=== PATIENT | male | born 1955 | race Caucasian/White ===

== ENCOUNTER 2018-08-13 16:05 | Inpatient (IN) | payer MEDICARE, OTHER ==
[~2018-08-13] VITALS: Ht 175.3 cm; Wt 75.3 kg
[~2018-08-13 16:05] MED LIST: AMIODARONE HCL100 MG ORAL; METOPROLOL SUCC25 MG ORAL
[2018-08-13 16:20] VITALS: BP 122/68
--- NOTE | 2018-08-13 16:20 | NUR ---
ED Nurse Note: Pt brought in to ER by amulance from store that he was shopping due to Rt flank sharp pain 12/15. pt aao x4 and calm and cooperative. skin will be assessed after lab works done. pt demonstrated general weakness and fatigued.
[2018-08-13] MEDS ORDERED: Morphine Sulfate 4mg/ml Inj (IV USE ONLY) IVP ONE ×2 (16:30→19:00)
[2018-08-13 16:38] LABS: APPEARANCE,URINE SLIGHTLY CLOUDY; BILIRUBIN, URINE NEGATIVE (NEGATIVE); COLOR,URINE AMBER; GLUCOSE, URINE (UA) NEGATIVE (NEGATIVE); KETONES,URINE NEGATIVE (NEGATIVE); LEUKOCYTE ESTERASE ,URINE 1+ (NEGATIVE); NITRITE,URINE NEGATIVE (NEGATIVE); PH,URINE 5 (4.5-8.0); PROTEIN,URINE 1+ (NEGATIVE); UROBILINOGEN,URINE 1 MG/DL (0.0-1.0)
[2018-08-13 17:06] LABS: HEMATOCRIT 37.1 % (42.0-52.0); HEMOGLOBIN 11.9 G/DL (14.2-18.0); MEAN CORPUSCULAR VOLUME 80 FL (80-99); PLATELET COUNT 169 K/UL (150-450); RED BLOOD COUNT 4.61 M/UL (4.70-6.10); RED CELL DISTRIBUTION WIDTH 15.7 % (11.6-14.8); WHITE BLOOD COUNT 21.2 K/UL (4.8-10.8)
[2018-08-13] MEDS ORDERED: cefTRIAXone 1 GM in NS 55 ML IVPB ONE (17:15)
[2018-08-13 17:21] LABS: ANION GAP 11 mmol/L (5-15); BLOOD UREA NITROGEN 19 mg/dL (7-18); CALCIUM 8.8 MG/DL (8.5-10.1); CARBON DIOXIDE 25 MMOL/L (21-32); CHLORIDE 102 MMOL/L (98-107); CREATININE 1.7 MG/DL (0.55-1.30); POTASSIUM 3.9 MMOL/L (3.5-5.1); SODIUM 138 MMOL/L (136-145)
--- NOTE | 2018-08-13 17:24 | Diagnostic Imaging Report ---
Indication: Right flank pain x3 hours Technique: Spiral acquisitions obtained through the abdomen and pelvis. No oral or IV contrast utilized, per urinary stone protocol. Multiplanar reconstructions were generated. Total dose length product 846.63 mGycm. CTDIvol(s) 15.47 mGy. Dose reduction achieved using automated exposure control Comparison: none Findings: There a prominent extrarenal pelvises bilaterally. No renal or ureteral calculi, hydronephrosis, or hydroureter. Lack of IV contrast limits assessment of the renal parenchyma; no gross renal parenchymal mass or cyst demonstrated. The appendix is normal. Moderate retained stool is seen in the ascending colon. There is a small left inguinal hernia that contains only fat. No small bowel distention. No free or loculated intraperitoneal gas or fluid is evident. Distal esophagus, stomach, duodenum are unremarkable. There is a small fat-containing umbilical hernia noted. The lack of IV contrast limits assessment of the other solid organs. The liver, gallbladder, bile ducts, pancreas, spleen, adrenals are all unremarkable. No retroperitoneal or mesenteric mass or adenopathy. No pelvic mass or adenopathy. The prostate is mildly prominent. The included lung bases demonstrate atelectasis and consolidation on the right, and dependent atelectatic changes on the left. There may be a component of scarring bilaterally as well. Pacemaker wires are seen in the heart. The bones demonstrate mild degenerative spondylosis changes Impression: Acute abdominal or pelvic abnormality. No evidence of obstructive uropathy or urinary stone disease Basilar pulmonary parenchymal disease, likely combination of consolidation, atelectasis, and scarring, right greater than left Incidental findings as noted, including degenerative spondylosis, pacemaker, small fat-containing umbilical hernia, small fat-containing left inguinal hernia The CT scanner at [facility] is accredited by the [employer] and the scans are performed using protocols designed to limit radiation exposure to as low as reasonably achievable to attain images of sufficient resolution adequate for diagnostic evaluation.
[2018-08-13 17:26] LABS: ALANINE AMINOTRANSFERASE 19 U/L (12-78); ALBUMIN 3.1 G/DL (3.4-5.0); ALBUMIN/GLOBULIN RATIO 0.9 (1.0-2.7); ALKALINE PHOSPHATASE 84 U/L (46-116); ASPARTATE AMINO TRANSFERASE 36 U/L (15-37); BILIRUBIN,TOTAL 0.6 MG/DL (0.2-1.0)
[2018-08-13] MEDS ORDERED: Azithromycin 500 MG in D5W 275 ML IVPB ONE (17:45)
[2018-08-13 18:00] VITALS: BP 131/62
--- NOTE | 2018-08-13 18:00 | NUR ---
ED Nurse Note: Pt saturating with room air at 88%. put him on 2 L/min via nasal cannula. saturating at 98%.
--- NOTE | 2018-08-13 18:00 | Emergency Room Report ---
History of Present Illness General Chief Complaint: Pain Source: Patient, EMS Present Illness HPI Patient is a 63-year-old male brought in by EMS after increased right-sided flank pain for approximately 3 hours. Patient reports of increased right-sided flank pain associate with increased dark urine. He had prior history of cardiac disease and is currently taking amiodarone and had prior stents Allergies: Coded Allergies: No Known Allergies (Unverified , 08/13/18) Patient History Past Medical History: see triage record Reviewed Nursing Documentation: PMH: Agreed; PSxH: Agreed Nursing Documentation-PMH Hx Cardiac Problems: Yes - pacemaker & 2 stents Hx Hypertension: Yes Review of Systems All Other Systems: negative except mentioned in HPI Physical Exam Vital Signs Date Time Temp Pulse Resp B/P (MAP) Pulse Ox O2 Delivery O2 Flow Rate FiO2 08/13/18 16:01 98.4 96 16 122/75 98 Room Air Sp02 EP Interpretation: reviewed, normal General Appearance: normal inspection, well appearing, no apparent distress, alert, GCS 15 Head: atraumatic ENT: normal ENT inspection, hearing grossly normal, normal voice Neck: normal inspection, full range of motion, supple, no bony tend Respiratory: normal inspection, lungs clear, normal breath sounds, no respiratory distress, no retraction, no wheezing Cardiovascular #1: regular rate, rhythm, no edema Gastrointestinal: normal inspection, normal bowel sounds, non tender, soft, no guarding, no hernia Genitourinary: no CVA tenderness Musculoskeletal: normal inspection, back normal, normal range of motion Neurologic: normal inspection, alert, responsive, speech normal Psychiatric: normal inspection, judgement/insight normal, mood/affect normal Skin: normal inspection, normal color, no rash Medical Decision Making Diagnostic Impression: Primary Impression: Pneumonitis Additional Impressions: On amiodarone therapy Leukocytosis Urinary tract infection ER Course Patient presented for flank pain. Differential diagnosis included was not limited to pneumonia, renal stone, rib fracture, pulmonary embolism, ulcer, enteritis, pyelonephritis among othersAuditory studies were notable for a markedly elevated white blood count. Patient was noted to have some evidence of urinary infection. CT of the abdomen pelvis read by radiology showed right- sided scarring and possible infiltrate. Chest x-ray was ordered. Cultures were obtained. Patient was given IV antibiotics.Patient was given IV pain medication due to flank pain.Dr. Ten Reno was contacted for inpatient management Labs Test 08/13/18 16:25 08/13/18 16:40 08/13/18 18:00 Urine Color Jade Urine Appearance Slightly cloudy Urine pH 5 (4.5-8.0) Urine Specific [place] 1.020 (1.005-1.035) Urine Protein 1+ (NEGATIVE) Urine Glucose (UA) Negative (NEGATIVE) Urine Ketones Negative (NEGATIVE) Urine Blood 2+ (NEGATIVE) Urine Nitrite Negative (NEGATIVE) Urine Bilirubin Negative (NEGATIVE) Urine Ictotest Negative (NEGATIVE) Urine Urobilinogen 1 MG/DL (0.0-1.0) Urine Leukocyte Esterase 1+ (NEGATIVE) Urine RBC 2-4 /HPF (0 - 0) Urine WBC 5-10 /HPF (0 - 0) Urine Squamous Epithelial Cells None /LPF (NONE/OCC) Urine Amorphous Sediment Few /LPF (NONE) Urine Bacteria Moderate /HPF (NONE) White Blood Count 21.2 K/UL (4.8-10.8) Red Blood Count 4.61 M/UL (4.70-6.10) Hemoglobin 11.9 G/DL (14.2-18.0) Hematocrit 37.1 % (42.0-52.0) Mean Corpuscular Volume 80 FL (80-99) Mean Corpuscular Hemoglobin 25.9 PG (27.0-31.0) Mean Corpuscular Hemoglobin Concent 32.2 G/DL (32.0-36.0) Red Cell Distribution Width 15.7 % (11.6-14.8) Platelet Count 169 K/UL (150-450) Mean Platelet Volume 9.1 FL (6.5-10.1) Neutrophils (%) (Auto) % (45.0-75.0) Lymphocytes (%) (Auto) % (20.0-45.0) Monocytes (%) (Auto) % (1.0-10.0) Eosinophils (%) (Auto) % (0.0-3.0) Basophils (%) (Auto) % (0.0-2.0) Differential Total Cells Counted 100 Neutrophils % (Manual) 86 % (45-75) Lymphocytes % (Manual) 10 % (20-45) Monocytes % (Manual) 4 % (1-10) Eosinophils % (Manual) 0 % (0-3) Basophils % (Manual) 0 % (0-2) Band Neutrophils 0 % (0-8) Platelet Estimate Adequate Platelet Morphology Normal Anisocytosis 1+ Microcytosis 1+ Sodium Level 138 MMOL/L (136-145) Potassium Level 3.9 MMOL/L (3.5-5.1) Chloride Level 102 MMOL/L (98-107) Carbon Dioxide Level 25 MMOL/L (21-32) Anion Gap 11 mmol/L (5-15) Blood Urea Nitrogen 19 mg/dL (7-18) Creatinine 1.7 MG/DL (0.55-1.30) Estimat Glomerular Filtration Rate 40.7 mL/min (>60) Glucose Level 96 MG/DL (74-106) Calcium Level 8.8 MG/DL (8.5-10.1) Total Bilirubin 0.6 MG/DL (0.2-1.0) Aspartate Amino Transf (AST/SGOT) 36 U/L (15-37) Alanine Aminotransferase (ALT/SGPT) 19 U/L (12-78) Alkaline Phosphatase 84 U/L (46-116) Total Protein 6.7 G/DL (6.4-8.2) Albumin 3.1 G/DL (3.4-5.0) Globulin 3.6 g/dL Albumin/Globulin Ratio 0.9 (1.0-2.7) Lipase 77 U/L (73-393) Lactic Acid Level 1.30 mmol/L (0.4-2.0) Last Vital Signs Date Time Temp Pulse Resp B/P (MAP) Pulse Ox O2 Delivery O2 Flow Rate FiO2 08/13/18 17:02 98.5 08/13/18 16:20 67 16 122/68 97 Room Air Status: improved Disposition: ADMITTED INPATIENT Condition: Stable Markel Ott MD Aug 13, 2018 18:00
[2018-08-13] MEDS ORDERED: AMIODARONE HCL100 MG ORAL (18:49)
[2018-08-13] MEDS ORDERED: DIAZEPAM5 MG ORAL (18:53)
[2018-08-13] MEDS ORDERED: CLARITIN5 MG ORAL (18:55)
[2018-08-13] MEDS ORDERED: CLARITIN10 MG ORAL (18:56)
[2018-08-13] MEDS ORDERED: XARELTO20 MG ORAL (18:57)
--- NOTE | 2018-08-13 18:57 | NUR ---
ED Nurse Note: pt c/o Rt flank pain worsen again to 11/14. ERMD made aware.
--- NOTE | 2018-08-13 19:04 | NUR ---
HAND-OFF: Report given to JAMIL Alba. no orders to carry at this moment. waiting for the room to be available in [facility].
[2018-08-13] MEDS ORDERED: Albuterol/Ipratropium 3ml neb HHN PRN (19:45)
[2018-08-13] MEDS ORDERED: LORazepam Inj 2mg/ml 1ml IV PRN (19:45)
[2018-08-13] MEDS ORDERED: Miralax 17gm pkt ORAL PRN (19:45)
--- NOTE | 2018-08-13 20:22 | NUR ---
ED Nurse Note: Patient states that he is not a homeless, his adress is [id number] [facility] [id number].
--- NOTE | 2018-08-13 20:35 | NUR ---
ED Nurse Note: tried to give report to Fani, JAMIL Randhawa asked to call in 10 min.
--- NOTE | 2018-08-13 21:42 | NUR ---
ED Nurse Note: Patient was admited to Tele. AAO x4, VSS at this time. Patient was transfered by ACLS protocol. All belongings were given to the patient.
[2018-08-13 21:55] VITALS: BP 130/72
--- NOTE | 2018-08-13 22:05 | NUR ---
NURSE NOTES: Received pt from ER. Pt is awake and resting in no acute distress. Patient tolerating on room air, nasal cannula available as needed. hall monitor placed on patient and vitals taken. IV site intact and patent. Orientated pt to room and floor. Bed in lowest position and call light within reach. Will contact MD for admission orders.
[2018-08-13] MEDS ORDERED: Cefepime HCl 2 GM in D5W 110 ML IV SCH (23:00)
[2018-08-13] MEDS: Heparin 5000 units/ml inj SUBQ SCH (23:25)
[2018-08-13] MEDS: Morphine Sulfate 4mg/ml Inj (IV USE ONLY) IVP PRN (23:28)
[2018-08-14] VITALS: BP 94/58
[2018-08-14] MEDS: Vancomycin 1.25gm Premix 275 ML IVPB SCH (00:42)
[2018-08-14 04:00] VITALS: BP 98/56
[2018-08-14] MEDS: Morphine Sulfate 4mg/ml Inj (IV USE ONLY) IVP PRN ×3 (05:48→20:45)
[2018-08-14 06:45] LABS: BASOPHILS % (AUTO) 0.4 % (0.0-2.0); EOSINOPHILS % (AUTO) 1.1 % (0.0-3.0); HEMATOCRIT 32.5 % (42.0-52.0); HEMOGLOBIN 10.7 G/DL (14.2-18.0); LYMPHOCYTES % (AUTO) 21.9 % (20.0-45.0); MEAN CORPUSCULAR VOLUME 81 FL (80-99); MONOCYTES % (AUTO) 8.3 % (1.0-10.0); NEUTROPHILS % (AUTO) 68.3 % (45.0-75.0); PLATELET COUNT 135 K/UL (150-450); RED BLOOD COUNT 4.02 M/UL (4.70-6.10); RED CELL DISTRIBUTION WIDTH 16.7 % (11.6-14.8); WHITE BLOOD COUNT 9.7 K/UL (4.8-10.8)
[2018-08-14 07:04] LABS: ALBUMIN 2.5 G/DL (3.4-5.0); ANION GAP 6 mmol/L (5-15); BLOOD UREA NITROGEN 17 mg/dL (7-18); CALCIUM 8.6 MG/DL (8.5-10.1); CARBON DIOXIDE 28 MMOL/L (21-32); CHLORIDE 107 MMOL/L (98-107); CREATININE 1.5 MG/DL (0.55-1.30); PHOSPHORUS 3.1 MG/DL (2.5-4.9); POTASSIUM 4.1 MMOL/L (3.5-5.1); SODIUM 141 MMOL/L (136-145)
--- NOTE | 2018-08-14 07:45 | Consultation ---
History of Present Illness General Date patient seen: Aug 14, 2018 Chief Complaint: Pain Reason for Consultation: Sepsis Present Illness HPI Mr. Deleon is a 63 yo male with PMHx of CAD s/p pacemaker and HTN who was brought to the ED after having severe right sided flank pain at a store. The patient reports that he had pain likel this 7 months ago and was Dx with PNA. He denies current cough, SOB, sick contacts and fevers. In the Ed he had a leukocytosis of 21 - now resolved and no fever. A CT of his abd/pelvis showed right lower lung atelectasis / consolidation and scaring CXR pending. His UA had a few WBCs and he complained of dark urine but no dysuria. He is now on RA and satting well. ID consulted for Sepsis PMHx/PSHx HTN CAD- SP Pacemaker SocHx No E/T/D FamHx Not contributory Allergies: Coded Allergies: No Known Allergies (Unverified , 08/13/18) Medication History Scheduled Amiodarone Hcl (Amiodarone Hcl), 100 MG ORAL DAILY, (Reported) Diazepam* (Diazepam*), 5 MG ORAL TWICE A DAY, (Reported) Loratadine (Claritin), Unknown Dose ORAL DAILY, (Reported) Metoprolol Succinate* (Metoprolol Succinate*), Unknown Dose ORAL DAILY, ( Reported) Miscellaneous Medications Rivaroxaban (Xarelto), 20 MG ORAL, (Reported) Patient History Healthcare decision maker Resuscitation status Full Code Advanced Directive on File Review of Systems ROS Narrative 12 point ROS negative except as note in the HPI. Physical Exam Last 24 Hour Vital Signs Date Time Temp Pulse Resp B/P (MAP) Pulse Ox O2 Delivery O2 Flow Rate FiO2 08/14/18 04:00 98.0 69 20 98/56 (70) 94 08/14/18 04:00 69 08/14/18 00:00 75 08/14/18 00:00 97.7 75 18 94/58 (70) 90 08/13/18 22:15 Room Air 08/13/18 22:06 75 08/13/18 21:55 97.9 75 18 130/72 (91) 95 08/13/18 21:42 98.4 86 18 137/74 98 Nasal Cannula 2.0 86 08/13/18 19:29 98.2 08/13/18 18:00 98.2 72 16 131/62 98 Room Air 2.0 08/13/18 17:02 98.5 08/13/18 17:00 70 16 Room Air 08/13/18 16:20 98.2 67 16 122/68 97 Room Air 08/13/18 16:01 98.4 96 16 122/75 98 Room Air Intake and Output 08/13/18 08/14/18 19:00 07:00 Intake Total 555 ml Output Total 3000 ml Balance 555 ml -3000 ml Intake Oral 0 ml IV Total 555 ml Output Urine Total 3000 ml # Voids 1 11 Laboratory Tests Test 08/13/18 16:25 08/13/18 16:40 08/13/18 18:00 08/14/18 06:00 Urine Color Jade Urine Appearance Slightly cloudy Urine pH 5 (4.5-8.0) Urine Specific [place] 1.020 (1.005-1.035) Urine Protein 1+ (NEGATIVE) H Urine Glucose (UA) Negative (NEGATIVE) Urine Ketones Negative (NEGATIVE) Urine Blood 2+ (NEGATIVE) H Urine Nitrite Negative (NEGATIVE) Urine Bilirubin Negative (NEGATIVE) Urine Ictotest Negative (NEGATIVE) Urine Urobilinogen 1 MG/DL (0.0-1.0) H Urine Leukocyte Esterase 1+ (NEGATIVE) H Urine RBC 2-4 /HPF (0 - 0) H Urine WBC 5-10 /HPF (0 - 0) H Urine Squamous Epithelial Cells None /LPF (NONE/OCC) Urine Amorphous Sediment Few /LPF (NONE) H Urine Bacteria Moderate /HPF (NONE) H White Blood Count 21.2 K/UL (4.8-10.8) H 9.7 K/UL (4.8-10.8) # Red Blood Count 4.61 M/UL (4.70-6.10) L 4.02 M/UL (4.70-6.10) L Hemoglobin 11.9 G/DL (14.2-18.0) L 10.7 G/DL (14.2-18.0) L Hematocrit 37.1 % (42.0-52.0) L 32.5 % (42.0-52.0) L Mean Corpuscular Volume 80 FL (80-99) 81 FL (80-99) Mean Corpuscular Hemoglobin 25.9 PG (27.0-31.0) L 26.5 PG (27.0-31.0) L Mean Corpuscular Hemoglobin Concent 32.2 G/DL (32.0-36.0) 32.7 G/DL (32.0-36.0) Red Cell Distribution Width 15.7 % (11.6-14.8) H 16.7 % (11.6-14.8) H Platelet Count 169 K/UL (150-450) 135 K/UL (150-450) L Mean Platelet Volume 9.1 FL (6.5-10.1) 11.0 FL (6.5-10.1) H Neutrophils (%) (Auto) % (45.0-75.0) 68.3 % (45.0-75.0) Lymphocytes (%) (Auto) % (20.0-45.0) 21.9 % (20.0-45.0) Monocytes (%) (Auto) % (1.0-10.0) 8.3 % (1.0-10.0) Eosinophils (%) (Auto) % (0.0-3.0) 1.1 % (0.0-3.0) Basophils (%) (Auto) % (0.0-2.0) 0.4 % (0.0-2.0) Differential Total Cells Counted 100 Neutrophils % (Manual) 86 % (45-75) H Lymphocytes % (Manual) 10 % (20-45) L Monocytes % (Manual) 4 % (1-10) Eosinophils % (Manual) 0 % (0-3) Basophils % (Manual) 0 % (0-2) Band Neutrophils 0 % (0-8) Platelet Estimate Adequate Platelet Morphology Normal Anisocytosis 1+ Microcytosis 1+ Sodium Level 138 MMOL/L (136-145) 141 MMOL/L (136-145) Potassium Level 3.9 MMOL/L (3.5-5.1) 4.1 MMOL/L (3.5-5.1) Chloride Level 102 MMOL/L (98-107) 107 MMOL/L (98-107) Carbon Dioxide Level 25 MMOL/L (21-32) 28 MMOL/L (21-32) Anion Gap 11 mmol/L (5-15) 6 mmol/L (5-15) Blood Urea Nitrogen 19 mg/dL (7-18) H 17 mg/dL (7-18) Creatinine 1.7 MG/DL (0.55-1.30) H 1.5 MG/DL (0.55-1.30) H Estimat Glomerular Filtration Rate 40.7 mL/min (>60) 47.0 mL/min (>60) Glucose Level 96 MG/DL (74-106) 85 MG/DL (74-106) Calcium Level 8.8 MG/DL (8.5-10.1) 8.6 MG/DL (8.5-10.1) Total Bilirubin 0.6 MG/DL (0.2-1.0) Aspartate Amino Transf (AST/SGOT) 36 U/L (15-37) Alanine Aminotransferase (ALT/SGPT) 19 U/L (12-78) Alkaline Phosphatase 84 U/L (46-116) Total Protein 6.7 G/DL (6.4-8.2) Albumin 3.1 G/DL (3.4-5.0) L 2.5 G/DL (3.4-5.0) L Globulin 3.6 g/dL Albumin/Globulin Ratio 0.9 (1.0-2.7) L Lipase 77 U/L (73-393) Lactic Acid Level 1.30 mmol/L (0.4-2.0) Phosphorus Level 3.1 MG/DL (2.5-4.9) Height (Feet): 5 Height (Inches): 9.00 Weight (Pounds): 165 Medications Current Medications Medications (Trade) Dose Ordered Sig/Shahla Route PRN Reason Start Time Stop Time Status Last Admin Dose Admin Acetaminophen (Tylenol) 650 mg Q4H PRN ORAL FEVER 08/13/18 19:45 09/12/18 19:44 Albuterol/ Ipratropium (Albuterol/ Ipratropium) 3 ml Q4H PRN HHN Shortness of Breath 08/13/18 19:45 08/18/18 19:44 Amiodarone HCl (Cordarone) 100 mg DAILY ORAL 08/14/18 09:00 09/13/18 08:59 Cefepime HCl 2 gm/ Dextrose 110 ml @ 220 mls/hr Q12H IV 08/13/18 23:00 08/20/18 22:59 4/8/19 23:26 Dextrose (Dextrose 50%) 50 ml STAT PRN IV Hypoglycemia 08/13/18 19:45 09/12/18 19:44 Heparin Sodium (Porcine) (Heparin 5000 units/ml) 5,000 units EVERY 12 HOURS SUBQ 08/13/18 21:00 09/12/18 20:59 08/13/18 23:25 Lorazepam (Ativan 2mg/ml 1ml) 2 mg Q2H PRN IV For Anxiety 08/13/18 19:45 08/20/18 19:44 Metoprolol Succinate (Toprol XL) 50 mg DAILY ORAL 08/14/18 09:00 09/13/18 08:59 Morphine Sulfate (Morphine Sulfate) 4 mg Q4H PRN IVP Severe Pain (Pain Scale 7-10) 08/13/18 19:45 08/20/18 19:44 08/14/18 05:48 Ondansetron HCl (Zofran) 4 mg Q6H PRN IVP Nausea & Vomiting 08/13/18 19:45 09/12/18 19:44 Polyethylene Glycol (Miralax) 17 gm DAILYPRN PRN ORAL Constipation 08/13/18 19:45 09/12/18 19:44 Sodium Chloride 1,000 ml @ 50 mls/hr Q20H IV 08/13/18 19:45 09/12/18 19:44 08/13/18 19:45 Vancomycin HCl/ Dextrose 275 ml @ 183.3 mls/ hr Q24H IVPB 08/14/18 00:30 08/19/18 00:29 08/14/18 00:42 Objective Narrative Gen: NAD, well appearing, alert HEENT: NCAT, MMM, EOMI, PERRL, No Oral lesion, no scleral icterus NECK: full range of motion, supple, no meningismus, No LAD, No JVD LUNGS: CTAB, No W/C, No Accessory muscle use CARDS: RRR, S1, S2, No M/R/G, ABD: Soft, NT, ND, No R/G, + BS, No HSM, No Masses : Deferred Ext: C/C/E, Pulses 2+ B/L (DP, Rad): NEURO: A/O x 4, Strength and Sensation Grossly intact PSYCH: Mood/affect normal SKIN: Warm/dry, No rashes Assessment/Plan Assessment/Plan 63 yo male with PMHx of CAD s/p pacemaker and HTN who was brought to the ED after having severe right sided flank pain at a store. Sepsis UTI? PNA? CT abd/pel 08/13/18 - Acute abdominal or pelvic abnormality. No evidence of obstructive uropathy or urinary stone disease. Basilar pulmonary parenchymal disease, likely combination of consolidation, atelectasis, and scarring, right greater than left. Incidental findings as noted, including degenerative spondylosis, pacemaker, small fat-containing umbilical hernia, small fat- containing left inguinal hernia Afebrile Leukocytosis initially 21 - Now resolved Spepsis vs pain reaction CAD- s/p pacemaker HTN PLAN - Start levofloxacin for UTI/CAP # 1/6 - 08/13/18 S/P Ceftriaxone x 1, Azithromycin x1 and Cefepime x 1 - f/u cultures - Monitor CBC and Temps Thank you for this consult. We will continue to follow the patient during this hospitalization. Shaan Rincon MD Aug 14, 2018 07:45
--- NOTE | 2018-08-14 07:45 | NUR ---
HAND-OFF: Report given to JAMIL Pickering. Endorsed plan of care.
--- NOTE | 2018-08-14 08:06 | NUR ---
CASE MANAGEMENT:REVIEW 63 YR OLD MALE BIBA FROM STORE CC: RT FLANK PAIN X 3HRS PMH: PACEMAKER SI: PNEUMONITIS. UTI. LEUKOCYTOSIS 98.5 96 16 122/75 98% ON RA WBC+21.2 BUN+19 CR+1.7 IS: IV ZOFRAN X1 500CC NS BOLUS IV MORPHINE IV ROCEPHIN IV AZITHROMYCIN CT ABD/PELVIS CXR URINE REFLEX : TO TELEMETRY :INTERQUAL CRITERIA MET
--- NOTE | 2018-08-14 08:43 | NUR ---
NURSE NOTES: Pt in bed in low position, bed alarm on, call light within reach, 2 rails up, pt Ox4 calm and cooperative, IV intact and running 1/2 NS at 50/hr, pt denies any pain, urinal at bedside, pt NPO for ST evaluation, pt on room air, pt refuses BiPap, no s/s of distress or sob noted.
[2018-08-14] MEDS: Amiodarone 200mg tab ORAL SCH (09:45)
[2018-08-14] MEDS: Metoprolol Succinate XL 50mg tab ORAL SCH (09:46)
[2018-08-14] MEDS: Heparin 5000 units/ml inj SUBQ SCH (09:47)
--- NOTE | 2018-08-14 09:56 | Diagnostic Imaging Report ---
Indication: Shortness of breath Technique: One view of the chest Comparison: none Findings: There is mild elevation of the right hemidiaphragm. There is some crowding of the bronchovascular markings in the right infrahilar region. Lungs and pleural spaces are otherwise clear. Heart size is normal. There is a left chest pacemaker. The aorta is elongated and tortuous Impression: No definite acute process. Findings as noted
[2018-08-14 10:07] LABS: APPEARANCE,URINE CLEAR; BILIRUBIN, URINE NEGATIVE (NEGATIVE); COLOR,URINE PALE YELLOW; GLUCOSE, URINE (UA) NEGATIVE (NEGATIVE); KETONES,URINE NEGATIVE (NEGATIVE); LEUKOCYTE ESTERASE ,URINE NEGATIVE (NEGATIVE); NITRITE,URINE NEGATIVE (NEGATIVE); PH,URINE 5 (4.5-8.0); PROTEIN,URINE NEGATIVE (NEGATIVE); UROBILINOGEN,URINE NORMAL MG/DL (0.0-1.0)
--- NOTE | 2018-08-14 11:01 | Diagnostic Imaging Report ---
APPROVED REPORT CPT Code: 19067 Present Symptoms Comments: BILATERAL LEGS PAIN. BILATERAL: Imaging reveals a patent deep venous system bilaterally. There is no evidence of thrombus within the femoral, popliteal or tibial segments. The greater saphenous veins are also within normal limits. Doppler indicates normal spontaneous flow within these segments.
[2018-08-14] MEDS ORDERED: Promethazine/Codeine 5ml UD ORAL PRN (11:30)
--- NOTE | 2018-08-14 11:34 | Consultation ---
History of Present Illness General Date patient seen: Aug 14, 2018 Chief Complaint: Pain Reason for Consultation: Sepsis Present Illness HPI 63 yo male with PMHx of CAD, s/p pacemaker, chronic anticoagulation and HTN brought to the ED with CC of severe right sided flank pain. He denies current cough, SOB, sick contacts and fevers. In the Ed he had a leukocytosis of 21. A CT of his abd/pelvis showed right lower lung atelectasis / consolidation and scaring . His UA had a few WBCs and he complained of dark urine but no dysuria. He is admitted to telemetry for further management. Allergies: Coded Allergies: No Known Allergies (Unverified , 08/13/18) Medication History Scheduled Amiodarone Hcl (Amiodarone Hcl), 100 MG ORAL DAILY, (Reported) Diazepam* (Diazepam*), 5 MG ORAL TWICE A DAY, (Reported) Loratadine (Claritin), Unknown Dose ORAL DAILY, (Reported) Metoprolol Succinate* (Metoprolol Succinate*), Unknown Dose ORAL DAILY, ( Reported) Miscellaneous Medications Rivaroxaban (Xarelto), 20 MG ORAL, (Reported) Patient History Healthcare decision maker Resuscitation status Full Code Advanced Directive on File Past Medical/Surgical History Past Medical/Surgical History: (1) Pacemaker (2) Chronic anticoagulation (3) Stented coronary artery (4) On amiodarone therapy (5) CAD (coronary artery disease) Review of Systems All Other Systems: negative except mentioned in HPI Physical Exam General Appearance: WD/WN Lines, tubes and drains: peripheral HEENT: normocephalic, atraumatic Neck: non-tender, normal alignment Respiratory/Chest: chest wall non-tender, lungs clear Breasts: no masses Cardiovascular/Chest: normal peripheral pulses Abdomen: normal bowel sounds Genitourinary/Rectal: normal genital exam Extremities: normal range of motion Skin Exam: normal pigmentation Last 24 Hour Vital Signs Date Time Temp Pulse Resp B/P (MAP) Pulse Ox O2 Delivery O2 Flow Rate FiO2 08/14/18 09:46 75 98/56 08/14/18 08:33 Room Air 08/14/18 07:35 75 16 Room Air 08/14/18 04:00 98.0 69 20 98/56 (70) 94 08/14/18 04:00 69 08/14/18 00:00 75 08/14/18 00:00 97.7 75 18 94/58 (70) 90 08/13/18 22:15 Room Air 08/13/18 22:06 75 08/13/18 21:55 97.9 75 18 130/72 (91) 95 08/13/18 21:42 98.4 86 18 137/74 98 Nasal Cannula 2.0 86 08/13/18 19:29 98.2 08/13/18 18:00 98.2 72 16 131/62 98 Room Air 2.0 08/13/18 17:02 98.5 08/13/18 17:00 70 16 Room Air 08/13/18 16:20 98.2 67 16 122/68 97 Room Air 08/13/18 16:01 98.4 96 16 122/75 98 Room Air Intake and Output 08/13/18 08/14/18 19:00 07:00 Intake Total 555 ml Output Total 3000 ml Balance 555 ml -3000 ml Intake Oral 0 ml IV Total 555 ml Output Urine Total 3000 ml # Voids 1 11 Laboratory Tests Test 08/13/18 16:25 08/13/18 16:40 08/13/18 18:00 08/14/18 06:00 Urine Color Jade Urine Appearance Slightly cloudy Urine pH 5 (4.5-8.0) Urine Specific [place] 1.020 (1.005-1.035) Urine Protein 1+ (NEGATIVE) H Urine Glucose (UA) Negative (NEGATIVE) Urine Ketones Negative (NEGATIVE) Urine Blood 2+ (NEGATIVE) H Urine Nitrite Negative (NEGATIVE) Urine Bilirubin Negative (NEGATIVE) Urine Ictotest Negative (NEGATIVE) Urine Urobilinogen 1 MG/DL (0.0-1.0) H Urine Leukocyte Esterase 1+ (NEGATIVE) H Urine RBC 2-4 /HPF (0 - 0) H Urine WBC 5-10 /HPF (0 - 0) H Urine Squamous Epithelial Cells None /LPF (NONE/OCC) Urine Amorphous Sediment Few /LPF (NONE) H Urine Bacteria Moderate /HPF (NONE) H White Blood Count 21.2 K/UL (4.8-10.8) H 9.7 K/UL (4.8-10.8) # Red Blood Count 4.61 M/UL (4.70-6.10) L 4.02 M/UL (4.70-6.10) L Hemoglobin 11.9 G/DL (14.2-18.0) L 10.7 G/DL (14.2-18.0) L Hematocrit 37.1 % (42.0-52.0) L 32.5 % (42.0-52.0) L Mean Corpuscular Volume 80 FL (80-99) 81 FL (80-99) Mean Corpuscular Hemoglobin 25.9 PG (27.0-31.0) L 26.5 PG (27.0-31.0) L Mean Corpuscular Hemoglobin Concent 32.2 G/DL (32.0-36.0) 32.7 G/DL (32.0-36.0) Red Cell Distribution Width 15.7 % (11.6-14.8) H 16.7 % (11.6-14.8) H Platelet Count 169 K/UL (150-450) 135 K/UL (150-450) L Mean Platelet Volume 9.1 FL (6.5-10.1) 11.0 FL (6.5-10.1) H Neutrophils (%) (Auto) % (45.0-75.0) 68.3 % (45.0-75.0) Lymphocytes (%) (Auto) % (20.0-45.0) 21.9 % (20.0-45.0) Monocytes (%) (Auto) % (1.0-10.0) 8.3 % (1.0-10.0) Eosinophils (%) (Auto) % (0.0-3.0) 1.1 % (0.0-3.0) Basophils (%) (Auto) % (0.0-2.0) 0.4 % (0.0-2.0) Differential Total Cells Counted 100 Neutrophils % (Manual) 86 % (45-75) H Lymphocytes % (Manual) 10 % (20-45) L Monocytes % (Manual) 4 % (1-10) Eosinophils % (Manual) 0 % (0-3) Basophils % (Manual) 0 % (0-2) Band Neutrophils 0 % (0-8) Platelet Estimate Adequate Platelet Morphology Normal Anisocytosis 1+ Microcytosis 1+ Sodium Level 138 MMOL/L (136-145) 141 MMOL/L (136-145) Potassium Level 3.9 MMOL/L (3.5-5.1) 4.1 MMOL/L (3.5-5.1) Chloride Level 102 MMOL/L (98-107) 107 MMOL/L (98-107) Carbon Dioxide Level 25 MMOL/L (21-32) 28 MMOL/L (21-32) Anion Gap 11 mmol/L (5-15) 6 mmol/L (5-15) Blood Urea Nitrogen 19 mg/dL (7-18) H 17 mg/dL (7-18) Creatinine 1.7 MG/DL (0.55-1.30) H 1.5 MG/DL (0.55-1.30) H Estimat Glomerular Filtration Rate 40.7 mL/min (>60) 47.0 mL/min (>60) Glucose Level 96 MG/DL (74-106) 85 MG/DL (74-106) Calcium Level 8.8 MG/DL (8.5-10.1) 8.6 MG/DL (8.5-10.1) Total Bilirubin 0.6 MG/DL (0.2-1.0) Aspartate Amino Transf (AST/SGOT) 36 U/L (15-37) Alanine Aminotransferase (ALT/SGPT) 19 U/L (12-78) Alkaline Phosphatase 84 U/L (46-116) Total Protein 6.7 G/DL (6.4-8.2) Albumin 3.1 G/DL (3.4-5.0) L 2.5 G/DL (3.4-5.0) L Globulin 3.6 g/dL Albumin/Globulin Ratio 0.9 (1.0-2.7) L Lipase 77 U/L (73-393) Lactic Acid Level 1.30 mmol/L (0.4-2.0) Phosphorus Level 3.1 MG/DL (2.5-4.9) Test 08/14/18 09:30 Urine Color Pale yellow Urine Appearance Clear Urine pH 5 (4.5-8.0) Urine Specific [place] 1.015 (1.005-1.035) Urine Protein Negative (NEGATIVE) Urine Glucose (UA) Negative (NEGATIVE) Urine Ketones Negative (NEGATIVE) Urine Blood Negative (NEGATIVE) Urine Nitrite Negative (NEGATIVE) Urine Bilirubin Negative (NEGATIVE) Urine Urobilinogen Normal MG/DL (0.0-1.0) Urine Leukocyte Esterase Negative (NEGATIVE) Urine RBC 0 /HPF (0 - 0) Urine WBC 0-2 /HPF (0 - 0) Urine Squamous Epithelial Cells Occasional /LPF Urine Bacteria Occasional /HPF (NONE) Urine Eosinophils None seen (NONE SEEN) Urine Random Sodium 76 mmol/L (20-110) Urine Creatinine 63.7 MG/DL (30.0-125.0) Urine Potassium Timed 17 mmol/L (12-62) Microbiology Date/Time Source Procedure Growth Status 08/13/18 16:25 Urine,Clean Catch Urine Culture - Preliminary NO GROWTH Resulted Height (Feet): 5 Height (Inches): 9.00 Weight (Pounds): 165 Medications Current Medications Medications (Trade) Dose Ordered Sig/Shahla Route PRN Reason Start Time Stop Time Status Last Admin Dose Admin Acetaminophen (Tylenol) 650 mg Q4H PRN ORAL FEVER 08/13/18 19:45 09/12/18 19:44 Albuterol/ Ipratropium (Albuterol/ Ipratropium) 3 ml Q4H PRN HHN Shortness of Breath 08/13/18 19:45 08/18/18 19:44 Amiodarone HCl (Cordarone) 100 mg DAILY ORAL 08/14/18 09:00 09/13/18 08:59 08/14/18 09:45 Ceftriaxone Sodium 1 gm/ Dextrose 55 ml @ 110 mls/hr Q24H IVPB 08/14/18 11:00 08/21/18 10:59 Dextrose (Dextrose 50%) 50 ml STAT PRN IV Hypoglycemia 08/13/18 19:45 09/12/18 19:44 Doxycycline Monohydrate (Vibramycin) 100 mg EVERY 12 HOURS ORAL 08/14/18 10:00 08/21/18 09:59 08/14/18 10:23 Heparin Sodium (Porcine) (Heparin 5000 units/ml) 5,000 units EVERY 12 HOURS SUBQ 08/13/18 21:00 09/12/18 20:59 08/14/18 09:47 Lorazepam (Ativan 2mg/ml 1ml) 2 mg Q2H PRN IV For Anxiety 08/13/18 19:45 08/20/18 19:44 Metoprolol Succinate (Toprol XL) 50 mg DAILY ORAL 08/14/18 09:00 09/13/18 08:59 Morphine Sulfate (Morphine Sulfate) 4 mg Q4H PRN IVP Severe Pain (Pain Scale 7-10) 08/13/18 19:45 08/20/18 19:44 08/14/18 05:48 Ondansetron HCl (Zofran) 4 mg Q6H PRN IVP Nausea & Vomiting 08/13/18 19:45 09/12/18 19:44 Polyethylene Glycol (Miralax) 17 gm DAILYPRN PRN ORAL Constipation 08/13/18 19:45 09/12/18 19:44 Sodium Chloride 1,000 ml @ 50 mls/hr Q20H IV 08/13/18 19:45 09/12/18 19:44 08/13/18 19:45 Vancomycin HCl (Vanco rx to dose) 1 ea DAILY PRN MISC Per rx protocol 08/14/18 10:30 09/13/18 10:29 Vancomycin HCl/ Dextrose 275 ml @ 183.3 mls/ hr Q24H IVPB 08/14/18 00:30 08/19/18 00:29 08/14/18 00:42 Assessment/Plan Problem List: (1) Sepsis ICD Codes: A41.9 - Sepsis, unspecified organism SNOMED: 31300329 (2) Stented coronary artery ICD Codes: Z95.5 - Presence of coronary angioplasty implant and graft SNOMED: 56730741, 015785993 (3) CAD (coronary artery disease) ICD Codes: I25.10 - Atherosclerotic heart disease of [place] coronary artery without angina pectoris SNOMED: 46552967 (4) Chronic anticoagulation ICD Codes: Z79.01 - [facility] (current) use of anticoagulants SNOMED: 808334552 (5) Pacemaker ICD Codes: Z95.0 - Presence of cardiac pacemaker SNOMED: 894508030 (6) On amiodarone therapy ICD Codes: Z79.899 - Other longterm (current) drug therapy SNOMED: 876331614 Status Narrative check sputum check urine cultures iv abx cardiology to see continue cardiac meds dvt prophylaxis monitor BP Nir Brown MD Aug 14, 2018 11:34
[2018-08-14] MEDS: cefTRIAXone 1 GM in D5W 55 ML IVPB SCH (11:36)
--- NOTE | 2018-08-14 12:15 | NUR ---
ST NOTE: BEDSIDE SWALLOW EVAL RECEIVED BEDSIDE SWALLOW EVAL ORDER CHART REVIEWED PRIOR THE EVALUATION PT IS A 63-YEAR-OLD MALE WHO WAS ADMITTED FOR FLANK PAIN ON R-SIDED AND UTI. PT HAS MEDICAL HISTORY OF HTN, H/O PACEMAKER AND L INGUINAL HERNIA(ON CHEST CT). CHEST CT: BASILAR PULMONARY PARENCHYMAL DISEASE, LIKELY COMBINATION OF CONSOLIDATION ATELECTASIS, AND SCARRING, R GREATER THAN L PER CXR: There is mild elevation of the right hemidiaphragm. There is some crowding of the bronchovascular markings in the right infrahilar region. Lungs and pleural spaces are otherwise clear. Heart size is normal. There is a left chest pacemaker. The aorta is elongated and tortuous PLOF: PT LIVES WITH A ROOMMATE. CURRENT STATUS: PT SEEN AT BEDSIDE IN AM. ALERT, COOPERATIVE, FOLLOWS DIRECTIONS. ORIENTED X 4. PT DENIED ANY SWALLOWING DIFFICULTY AND RESPIRATORY INSUFFICIENCY. PT SATURATED AT 98% ON ROOM AIR. (? BIPAP USE) GIVEN PO TRIALS: THIN(CUP-SELF), PUREE(TSP), SOLID FOOD TRIALS(BREAKFAST) PT IS ABLE TO FEED SELF. INITIAL IMPRESSION: GOOD DENTITION GROSSLY FUNCTIONAL MASTICATION TIME. GROSSLY FUNCTIONAL ORAL TRANSIT TIME AND OROPHARYNGEAL TRANSIT TIME ADEQUATE LARYNGEAL ELEVATION, NO OVERT S/S OF ASPIRATION. OVERALL, PT'S SWALLOWING IS FUNCTIONAL. RECOMMENDATIONS: 1. SLOWLY INITIATE REGULAR WITH THIN LIQUIDS DIET 2. GENERAL ASPIRATION PRECAUTIONS NO FURTHER SKILLED ST SERVICE IS REQUIRED AT THIS TIME. PLEASE REFER TO IT SUPPORT MANAGER IF ANY CHANGE OF CONDITIONS IS NOTED. EDUCATED PT RE: RESULTS AND RECOMMENDATIONS, AND ASPIRATION PRECAUTIONS. RNMAYRA, NOTIFIED.
--- NOTE | 2018-08-14 12:27 | Cardiology Report ---
APPROVED REPORT EKG Measurement Heart [id number] Normal sinus rhythm Normal ECG
--- NOTE | 2018-08-14 13:52 | Cardiology Progress Note ---
Assessment/Plan Assessment/Plan [id number] syncope?? 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) cad s/p stent afib hs apcemaker implantation htn hyperlipidemai Objective Last 24 Hour Vital Signs Date Time Temp Pulse Resp B/P (MAP) Pulse Ox O2 Delivery O2 Flow Rate FiO2 08/14/18 12:00 76 08/14/18 09:46 75 98/56 08/14/18 08:33 Room Air 08/14/18 07:37 66 08/14/18 07:35 75 16 Room Air 08/14/18 04:00 98.0 69 20 98/56 (70) 94 08/14/18 04:00 69 08/14/18 00:00 75 08/14/18 00:00 97.7 75 18 94/58 (70) 90 08/13/18 22:15 Room Air 08/13/18 22:06 75 08/13/18 21:55 97.9 75 18 130/72 (91) 95 08/13/18 21:42 98.4 86 18 137/74 98 Nasal Cannula 2.0 86 08/13/18 19:29 98.2 08/13/18 18:00 98.2 72 16 131/62 98 Room Air 2.0 08/13/18 17:02 98.5 08/13/18 17:00 70 16 Room Air 08/13/18 16:20 98.2 67 16 122/68 97 Room Air 08/13/18 16:01 98.4 96 16 122/75 98 Room Air Intake and Output 08/13/18 08/14/18 19:00 07:00 Intake Total 555 ml Output Total 3000 ml Balance 555 ml -3000 ml Intake Oral 0 ml IV Total 555 ml Output Urine Total 3000 ml # Voids 1 11 Laboratory Tests Test 08/13/18 16:25 08/13/18 16:40 08/13/18 18:00 08/14/18 06:00 Urine Color Jade Urine Appearance Slightly cloudy Urine pH 5 (4.5-8.0) Urine Specific [place] 1.020 (1.005-1.035) Urine Protein 1+ (NEGATIVE) H Urine Glucose (UA) Negative (NEGATIVE) Urine Ketones Negative (NEGATIVE) Urine Blood 2+ (NEGATIVE) H Urine Nitrite Negative (NEGATIVE) Urine Bilirubin Negative (NEGATIVE) Urine Ictotest Negative (NEGATIVE) Urine Urobilinogen 1 MG/DL (0.0-1.0) H Urine Leukocyte Esterase 1+ (NEGATIVE) H Urine RBC 2-4 /HPF (0 - 0) H Urine WBC 5-10 /HPF (0 - 0) H Urine Squamous Epithelial Cells None /LPF (NONE/OCC) Urine Amorphous Sediment Few /LPF (NONE) H Urine Bacteria Moderate /HPF (NONE) H White Blood Count 21.2 K/UL (4.8-10.8) H 9.7 K/UL (4.8-10.8) # Red Blood Count 4.61 M/UL (4.70-6.10) L 4.02 M/UL (4.70-6.10) L Hemoglobin 11.9 G/DL (14.2-18.0) L 10.7 G/DL (14.2-18.0) L Hematocrit 37.1 % (42.0-52.0) L 32.5 % (42.0-52.0) L Mean Corpuscular Volume 80 FL (80-99) 81 FL (80-99) Mean Corpuscular Hemoglobin 25.9 PG (27.0-31.0) L 26.5 PG (27.0-31.0) L Mean Corpuscular Hemoglobin Concent 32.2 G/DL (32.0-36.0) 32.7 G/DL (32.0-36.0) Red Cell Distribution Width 15.7 % (11.6-14.8) H 16.7 % (11.6-14.8) H Platelet Count 169 K/UL (150-450) 135 K/UL (150-450) L Mean Platelet Volume 9.1 FL (6.5-10.1) 11.0 FL (6.5-10.1) H Neutrophils (%) (Auto) % (45.0-75.0) 68.3 % (45.0-75.0) Lymphocytes (%) (Auto) % (20.0-45.0) 21.9 % (20.0-45.0) Monocytes (%) (Auto) % (1.0-10.0) 8.3 % (1.0-10.0) Eosinophils (%) (Auto) % (0.0-3.0) 1.1 % (0.0-3.0) Basophils (%) (Auto) % (0.0-2.0) 0.4 % (0.0-2.0) Differential Total Cells Counted 100 Neutrophils % (Manual) 86 % (45-75) H Lymphocytes % (Manual) 10 % (20-45) L Monocytes % (Manual) 4 % (1-10) Eosinophils % (Manual) 0 % (0-3) Basophils % (Manual) 0 % (0-2) Band Neutrophils 0 % (0-8) Platelet Estimate Adequate Platelet Morphology Normal Anisocytosis 1+ Microcytosis 1+ Sodium Level 138 MMOL/L (136-145) 141 MMOL/L (136-145) Potassium Level 3.9 MMOL/L (3.5-5.1) 4.1 MMOL/L (3.5-5.1) Chloride Level 102 MMOL/L (98-107) 107 MMOL/L (98-107) Carbon Dioxide Level 25 MMOL/L (21-32) 28 MMOL/L (21-32) Anion Gap 11 mmol/L (5-15) 6 mmol/L (5-15) Blood Urea Nitrogen 19 mg/dL (7-18) H 17 mg/dL (7-18) Creatinine 1.7 MG/DL (0.55-1.30) H 1.5 MG/DL (0.55-1.30) H Estimat Glomerular Filtration Rate 40.7 mL/min (>60) 47.0 mL/min (>60) Glucose Level 96 MG/DL (74-106) 85 MG/DL (74-106) Calcium Level 8.8 MG/DL (8.5-10.1) 8.6 MG/DL (8.5-10.1) Total Bilirubin 0.6 MG/DL (0.2-1.0) Aspartate Amino Transf (AST/SGOT) 36 U/L (15-37) Alanine Aminotransferase (ALT/SGPT) 19 U/L (12-78) Alkaline Phosphatase 84 U/L (46-116) Total Protein 6.7 G/DL (6.4-8.2) Albumin 3.1 G/DL (3.4-5.0) L 2.5 G/DL (3.4-5.0) L Globulin 3.6 g/dL Albumin/Globulin Ratio 0.9 (1.0-2.7) L Lipase 77 U/L (73-393) Lactic Acid Level 1.30 mmol/L (0.4-2.0) Phosphorus Level 3.1 MG/DL (2.5-4.9) Test 08/14/18 09:30 Urine Color Pale yellow Urine Appearance Clear Urine pH 5 (4.5-8.0) Urine Specific [place] 1.015 (1.005-1.035) Urine Protein Negative (NEGATIVE) Urine Glucose (UA) Negative (NEGATIVE) Urine Ketones Negative (NEGATIVE) Urine Blood Negative (NEGATIVE) Urine Nitrite Negative (NEGATIVE) Urine Bilirubin Negative (NEGATIVE) Urine Urobilinogen Normal MG/DL (0.0-1.0) Urine Leukocyte Esterase Negative (NEGATIVE) Urine RBC 0 /HPF (0 - 0) Urine WBC 0-2 /HPF (0 - 0) Urine Squamous Epithelial Cells Occasional /LPF Urine Bacteria Occasional /HPF (NONE) Urine Eosinophils None seen (NONE SEEN) Urine Random Sodium 76 mmol/L (20-110) Urine Creatinine 63.7 MG/DL (30.0-125.0) Urine Potassium Timed 17 mmol/L (12-62) Microbiology Date/Time Source Procedure Growth Status 08/13/18 16:25 Urine,Clean Catch Urine Culture - Preliminary NO GROWTH Resulted Raul Rice MD Aug 14, 2018 13:52
--- NOTE | 2018-08-14 17:30 | History & Physical ---
History and Physical History & Physicial Dictated for Int Med-Dr [place] no. [id number]. Ted Monk MD Aug 14, 2018 17:30
[2018-08-14] MEDS: Eliquis 2.5mg tablet ORAL SCH (18:11)
--- NOTE | 2018-08-14 19:10 | NUR ---
HAND-OFF: Report given to Yolande Miranda.
--- NOTE | 2018-08-14 19:20 | NUR ---
NURSE NOTES: Report received from JAMIL Pickering. Observed pt lying on the bed. A/O x4. 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 Room air without signs of SOB. IV on L AC 20G, running 1/2NS at 50cc/hr, intact and patent. Bed in the lowest position. Side rails up x2. Call light within reach. Will continue to monitor.
[2018-08-14 20:00] VITALS: BP 107/56
--- NOTE | 2018-08-14 23:15 | History and Physical Report ---
DATE OF ADMISSION: 08/13/2018 CHIEF COMPLAINT: The patient is a 63-year-old white male, who presents with a chief complaint of near syncope. HISTORY OF PRESENT ILLNESS: The patient is somewhat agitated. The patient is refusing to answer questions. The patient states he was on his way to a liquor store yesterday, 08/13/2018. The patient states it was hot. The patient slumped to the ground. The patient thinks it was "because I was dehydrated." The patient presented to [place] [facility]. The patient was admitted for syncopal episode as above. Of note, the patient is also complaining of right flank pain. REVIEW OF SYSTEMS: CONSTITUTIONAL: The patient denies weight loss or weight gain. The patient denies fevers or chills. HEENT: The patient denies ear or throat pain. The patient denies headache. CARDIOVASCULAR: The patient denies palpitations or chest pain. CHEST: The patient denies wheeze or shortness of breath. ABDOMINAL: The patient denies nausea, vomiting, diarrhea, or constipation. GENITOURINARY: The patient complains of right flank pain as above. The patient denies dysuria or increased frequency of urination. The patient denies hematuria. NEUROMUSCULAR: The patient complains of near syncopal episode as above. The patient denies seizures or generalized weakness. PAST MEDICAL HISTORY: Significant for, 1. Hypertension. 2. Coronary artery disease, status post 2 stents placed in 2017. PAST SURGICAL HISTORY: Significant for, 1. Pacemaker implantation in 2017. CURRENT MEDICATIONS: 1. Amiodarone 100 mg p.o. daily. 2. Valium 5 mg p.o. twice daily. 3. Metoprolol 25 mg p.o. daily. 4. Xarelto 20 mg p.o. daily. ALLERGIES: No known drug allergies. SOCIAL HISTORY: The patient is single and lives alone. The patient denies tobacco or alcohol use. Of note, the patient was on his way to a liquor store when the patient was brought to the emergency room. PHYSICAL EXAMINATION: VITAL SIGNS: Temperature 98.2, respirations 16, pulse 67, and blood pressure 122/68. GENERAL: The patient is a well-developed and well-nourished white male, in no apparent distress. HEENT: Eyes, pupils are equal and responsive to light and accommodation. Extraocular movements are intact. NECK: Supple without lymphadenopathy. CHEST: Lungs are clear to auscultation bilaterally without wheezes or rales. CARDIOVASCULAR: Regular rhythm and rate. S1 and S2 are normal without murmurs, rubs, or gallops. ABDOMEN: Soft, nontender, and nondistended. Positive bowel sounds. No evidence of hepatosplenomegaly. Currently, no rebound or guarding noted. NEUROLOGIC: Cranial nerves II through XII are grossly intact without focal deficits. Motor strength is 5/5 bilaterally. Deep tendon reflexes are 2+ plantar. EXTREMITIES: Without clubbing, cyanosis, or edema. RECTAL/GENITAL: Not performed. LABORATORY STUDIES: WBC 21.2, hemoglobin 11.9, hematocrit 37.1, and platelets 169,000. Sodium 138, potassium 3.9, chloride 102, CO2 11, BUN 19, creatinine 1.7, and glucose 96. A CT of the abdomen and pelvis failed to demonstrate acute renal calculus. ASSESSMENT: This is a 63-year-old white male. 1. Near syncopal episode. 2. Right flank pain. 3. Hypertension. 4. Coronary artery disease. 5. Pacemaker in situ. TREATMENT: 1. Near syncopal episode. This may be secondary to dehydration. The patient's BUN and creatinine are elevated. The patient is currently receiving intravenous fluids. Differential also includes acute coronary syndrome versus acute cerebrovascular accident. An MRI of the brain is pending. A Cardiology consultation has been obtained with Dr. Raul Rice. 2. Right flank pain. An initial urinalysis was within normal limits. A CT scan of the abdomen and pelvis failed to demonstrate acute renal calculus. The patient may have passed a stone previously. A urine culture is pending. 3. Hypertension. Continue metoprolol as above. 4. Coronary artery disease. Continue Xarelto as above. Continue amiodarone as above. Ted Monk M.D. DR: KRIS JOB#: [id number] CC:
--- NOTE | 2018-08-14 23:30 | Consultation ---
DATE OF CONSULTATION: 08/14/2018 CARDIOLOGY CONSULTATION CONSULTING PHYSICIAN: Raul Rice M.D. REFERRING PHYSICIAN: Ten Reno M.D. REASON FOR REFERRAL: Syncope. HISTORY OF PRESENT ILLNESS: This is an elderly gentleman, who has a history of coronary artery disease status post coronary artery stenting and placement of permanent pacemaker implantation for atrial fibrillation 2 years ago for really unknown symptoms at that time. The patient tells me he was outside of [employer] when found himself on the floor. Paramedics were summoned by the staff [place] [employer] [facility] [place] was brought to the emergency room here at [facility] and subsequently admitted. The telecommunications operator run sheet indicates the patient was complaining of right flank pain for two hours, was alert and oriented, and was ambulating. They mentioned no trauma. No loss of consciousness. No chest pain. No short of breath were intact. In fact, they documented a blood pressure initially of 150/80 with a heart rate of 80 and subsequently 122/75. Nevertheless, the patient indicates otherwise that he has had problem with passing out, the similar to what he has had on prior occasions number of years ago. He does not really have any pain, pressure, tightness, or heaviness in the chest. He does not have any PND or orthopnea. He uses one pillow. There is no dizziness or lightheadedness when he sits up or stands up. He has no chest discomfort of any kind. PAST MEDICAL HISTORY: Positive for high blood pressure, high cholesterol, history of atrial fibrillation, status post permanent pacemaker implantation 2 years ago , and occasionally he did have small heart attacks, the stents that were placed 2 years ago for unknown symptoms. No cancer. No hepatitis. No tuberculosis. No asthma or emphysema. No ulcers. No kidney problems, liver problems, thyroid problems, anemia, arthritis, HIV, AIDS, blood clots, or any other medical problems. ALLERGIES: He denies any allergies to medications. SOCIAL HISTORY: Denies any smoking or drinking. He has a remote history of drug use, but not recently. REVIEW OF SYSTEMS: GASTROINTESTINAL: Denies any nausea, vomiting, diarrhea, or constipation. GENITOURINARY: Denies. PULMONARY: Negative. CONSTITUTIONAL: Negative. NEUROLOGIC: Negative. PHYSICAL EXAMINATION: GENERAL: Shows to be elderly gentleman, in no respiratory distress. NECK: Supple. No jugular venous distention. No jugular reflux noted. LUNGS: Clear to auscultation and percussion. CARDIAC: S1 is normal. S2 is normal. Regular rate and rhythm. No heaves, thrills, gallops, or rubs are noted. ABDOMEN: Soft and nontender. Positive bowel sounds. EXTREMITIES: There is no clubbing, cyanosis, nor is there any edema. NEUROLOGICAL: He is awake, alert, and responsive. LABORATORY VALUES: EKG shows normal sinus rhythm. No ST or T-wave abnormalities of any significant degree. Telemetry shows no evidence of bradycardia whatsoever. The laboratories show white count of 9.7, down from 21.3 yesterday with hemoglobin 10.7 and platelet count of 135,000. His hemoglobin was 11.9 at the time of initial admission. Sodium 141, potassium 4.1, chloride 107, bicarb 28, BUN of 17, creatinine 1.5, and glucose of 85. Lactic acid of 1.3. Albumin of 3.1 and 2.5 subsequently. Lipase is 77. Urinalysis shows 5 to 10 wbc's and there has been preliminarily no growth. He did have abdominal and pelvic CT scans here shows bibasilar pulmonary parenchymal disease likely combination of consolidation and atelectasis, degenerative spinal spondylosis, pacemaker, small fat containing umbilical hernia, small fat containing left inguinal hernia, moderate . Venous duplex study of the lower extremities were also performed and that showed patent venous system bilaterally and a chest x-ray was also performed. No definite acute pulmonary processes was noted. ASSESSMENT AND PLAN: 1. Syncope, questionable. 2. Right flank pain. 3. Urinary tract infection. 4. History of coronary artery disease status post 2 stents. 5. History of permanent pacemaker implantation. 6. History of atrial fibrillation previously. 7. History of prior syncope. PLAN: 1. Dr. Reno, this patient was seen in cardiac consultation. The patient does have a reported history of syncope and atrial fibrillation. He is on amiodarone, metoprolol as well as some Xarelto, which should be all continued for the time being. I have his pacemaker information, which I will try to arrange for pacemaker interrogation. 2. History of syncope previously and he has had a history of permanent pacemaker implantation as well as stenting on prior occasions. His symptoms prior to his stent is really not clear to me. There are no electrocardiographic changes. We will repeat cardiac enzymes. His pacemaker will be interrogated. We will arrange for the interrogation. His usual medications should be continued. He is being treated for intravenous for possibility of a pyelonephritis. He will have orthostatic vitals to be checked and intravenous fluids will be administered and echocardiogram will also be ordered for evaluation of his syncope. Raul Rice M.D. DR: NEVILLE JOB#: [id number] CC:
[2018-08-15] VITALS: BP 107/60
[2018-08-15] MEDS: Vancomycin 1.25gm Premix 275 ML IVPB SCH (00:47)
[2018-08-15] MEDS: Morphine Sulfate 4mg/ml Inj (IV USE ONLY) IVP PRN ×2 (03:35→08:43)
[2018-08-15 04:00] VITALS: BP 124/60
--- NOTE | 2018-08-15 07:25 | NUR ---
HAND-OFF: Report given to JAMIL West. No acute distress noted at this time.
--- NOTE | 2018-08-15 07:35 | NUR ---
NURSE NOTES: Report received from JAMIL Holcomb. Pt is sitting in bed, eating his break fast in stable condition. Patient is alert and oriented x4. Breathing is even and unlabored in room air. No acute distress noted at this time. Bed is in lowest position with brake engaged, side rails up x2. Call light and side table placed within reach. Will continue to monitor.
[2018-08-15 08:00] VITALS: BP 127/69
[2018-08-15] MEDS: Eliquis 2.5mg tablet ORAL SCH ×2 (08:29→17:11)
[2018-08-15] MEDS: Metoprolol Succinate XL 50mg tab ORAL SCH (08:29)
[2018-08-15] MEDS: Amiodarone 200mg tab ORAL SCH (08:29)
--- NOTE | 2018-08-15 09:45 | Infectious Diseases Prog Note ---
Assessment/Plan Assessment/Plan 63 yo male with PMHx of CAD s/p pacemaker and HTN who was brought to the ED after having severe right sided flank pain at a store. Sepsis UTI? PNA? CT abd/pel 08/13/18 - Acute abdominal or pelvic abnormality. No evidence of obstructive uropathy or urinary stone disease. Basilar pulmonary parenchymal disease, likely combination of consolidation, atelectasis, and scarring, right greater than left. Incidental findings as noted, including degenerative spondylosis, pacemaker, small fat-containing umbilical hernia, small fat- containing left inguinal hernia Afebrile Leukocytosis initially 21 - Now resolved Spepsis vs pain reaction B/U Cx ngtd CAD- s/p pacemaker HTN PLAN - Continue Ceftriaxone #2/3 UTI and Doxycycline 100mg BID #2/6 for PNA Held levophed for amiodarone possible - 08/14/18 S/P Ceftriaxone x 1, Azithromycin x1 and Cefepime x 1 - f/u cultures - Monitor CBC and Temps We will continue to follow the patient during this hospitalization. Subjective Allergies: Coded Allergies: No Known Allergies (Unverified , 08/13/18) Subjective Aferbile Side pain improved No Leukocytosis Objective Vital Signs Last 24 Hour Vital Signs Date Time Temp Pulse Resp B/P (MAP) Pulse Ox O2 Delivery O2 Flow Rate FiO2 08/15/18 08:29 82 127/69 08/15/18 08:00 97.9 82 20 127/69 (88) 98 08/15/18 07:25 81 16 Room Air 08/15/18 04:00 69 08/15/18 04:00 98.0 69 18 124/60 (81) 98 08/15/18 00:00 97.7 70 18 107/60 (76) 93 08/15/18 00:00 68 08/14/18 21:00 Room Air 08/14/18 20:00 97.6 75 18 107/56 (73) 96 08/14/18 20:00 67 08/14/18 19:40 75 18 Room Air 08/14/18 15:36 75 08/14/18 14:22 98.0 08/14/18 12:00 76 08/14/18 09:46 75 98/56 Height (Feet): 5 Height (Inches): 9.00 Weight (Pounds): 166 Objective Gen: NAD, well appearing, alert HEENT: NCAT, MMM, EOMI LUNGS: CTAB, No W CARDS: RRR, S1, S2, No M/R/G, ABD: Soft, NT, ND,+ BS Ext: C/C/E, Pulses 2+ B/L (DP, Rad): NEURO: A/O x 4, Strength and Sensation Grossly intact Microbiology Date/Time Source Procedure Growth Status 08/13/18 18:06 Blood Blood Culture - Preliminary NO GROWTH AFTER 24 HOURS Resulted 08/13/18 18:00 Blood Blood Culture - Preliminary NO GROWTH AFTER 24 HOURS Resulted 08/13/18 16:25 Urine,Clean Catch Urine Culture - Preliminary NO GROWTH AFTER 24 HOURS Resulted Laboratory Tests Test 08/15/18 06:37 Troponin I 0.000 ng/mL (0.000-0.056) Pro-B-Type Natriuretic Peptide 278 pg/mL (0-125) H Current Medications Medications (Trade) Dose Ordered Sig/Shahla Route PRN Reason Start Time Stop Time Status Last Admin Dose Admin Acetaminophen (Tylenol) 650 mg Q4H PRN ORAL FEVER 08/13/18 19:45 09/12/18 19:44 Albuterol/ Ipratropium (Albuterol/ Ipratropium) 3 ml Q4H PRN HHN Shortness of Breath 08/13/18 19:45 08/18/18 19:44 Amiodarone HCl (Cordarone) 100 mg DAILY ORAL 08/14/18 09:00 09/13/18 08:59 08/15/18 08:29 Apixaban (Eliquis) 5 mg BID ORAL 08/14/18 18:00 09/13/18 17:59 08/15/18 08:29 Ceftriaxone Sodium 1 gm/ Dextrose 55 ml @ 110 mls/hr Q24H IVPB 08/14/18 11:00 08/21/18 10:59 08/14/18 11:36 Dextrose (Dextrose 50%) 50 ml STAT PRN IV Hypoglycemia 08/13/18 19:45 09/12/18 19:44 Doxycycline Monohydrate (Vibramycin) 100 mg EVERY 12 HOURS ORAL 08/14/18 10:00 08/21/18 09:59 08/15/18 08:30 Lorazepam (Ativan 2mg/ml 1ml) 2 mg Q2H PRN IV For Anxiety 08/13/18 19:45 08/20/18 19:44 Metoprolol Succinate (Toprol XL) 50 mg DAILY ORAL 08/14/18 09:00 09/13/18 08:59 08/15/18 08:29 Morphine Sulfate (Morphine Sulfate) 4 mg Q4H PRN IVP Severe Pain (Pain Scale 7-10) 08/13/18 19:45 08/20/18 19:44 08/15/18 08:43 Ondansetron HCl (Zofran) 4 mg Q6H PRN IVP Nausea & Vomiting 08/13/18 19:45 09/12/18 19:44 Polyethylene Glycol (Miralax) 17 gm DAILYPRN PRN ORAL Constipation 08/13/18 19:45 09/12/18 19:44 Promethazine HCl/ Codeine (Phenergan with Codeine) 5 ml Q4H PRN ORAL For Cough 08/14/18 11:30 09/13/18 11:29 Sodium Chloride 1,000 ml @ 50 mls/hr Q20H IV 08/13/18 19:45 09/12/18 19:44 08/14/18 18:17 Vancomycin HCl (Vanco rx to dose) 1 ea DAILY PRN MISC Per rx protocol 08/14/18 10:30 09/13/18 10:29 Vancomycin HCl/ Dextrose 275 ml @ 183.3 mls/ hr Q24H IVPB 08/14/18 00:30 08/19/18 00:29 08/15/18 00:47 Shaan Rincon MD Aug 15, 2018 09:45
[2018-08-15] MEDS: cefTRIAXone 1 GM in D5W 55 ML IVPB SCH (10:41)
[2018-08-15 12:00] VITALS: BP 124/77
--- NOTE | 2018-08-15 12:16 | Pulmonology Progress Note ---
Assessment/Plan Problems: (1) Sepsis (2) Stented coronary artery (3) CAD (coronary artery disease) (4) Chronic anticoagulation (5) Pacemaker (6) On amiodarone therapy Assessment/Plan check sputum check urine cultures iv abx cardiology note appreciated check pacemaker Apixiban was added continue cardiac meds dvt prophylaxis monitor BP Subjective ROS Limited/Unobtainable: No Constitutional: Reports: no symptoms HEENT: Repors: no symptoms Allergies: Coded Allergies: No Known Allergies (Unverified , 08/13/18) Objective Last 24 Hour Vital Signs Date Time Temp Pulse Resp B/P (MAP) Pulse Ox O2 Delivery O2 Flow Rate FiO2 08/15/18 09:00 Room Air 08/15/18 08:29 82 127/69 08/15/18 08:00 97.9 82 20 127/69 (88) 98 08/15/18 07:25 81 16 Room Air 08/15/18 04:00 69 08/15/18 04:00 98.0 69 18 124/60 (81) 98 08/15/18 00:00 97.7 70 18 107/60 (76) 93 08/15/18 00:00 68 08/14/18 21:00 Room Air 08/14/18 20:00 97.6 75 18 107/56 (73) 96 08/14/18 20:00 67 08/14/18 19:40 75 18 Room Air 08/14/18 15:36 75 08/14/18 14:22 98.0 Intake and Output 08/14/18 08/15/18 19:00 07:00 Intake Total 743 ml 775 ml Output Total 1350 ml 650 ml Balance -607 ml 125 ml Intake Oral 730 ml IV Total 13 ml 775 ml Output Urine Total 1350 ml 650 ml # Voids 3 General Appearance: WD/WN HEENT: normocephalic, atraumatic Respiratory/Chest: chest wall non-tender, normal breath sounds Cardiovascular: normal peripheral pulses, normal rate Abdomen: normal bowel sounds, soft, non tender Genitourinary: normal external genitalia Extremities: no clubbing Neurologic/Psychiatric: 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 II-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 grossly normal Microbiology Date/Time Source Procedure Growth Status 08/13/18 18:06 Blood Blood Culture - Preliminary NO GROWTH AFTER 24 HOURS Resulted 08/13/18 18:00 Blood Blood Culture - Preliminary NO GROWTH AFTER 24 HOURS Resulted 08/13/18 16:25 Urine,Clean Catch Urine Culture - Preliminary NO GROWTH AFTER 24 HOURS Resulted Laboratory Tests 08/15/18 06:37: Troponin I 0.000, Pro-B-Type Natriuretic Peptide 278H Current Medications Medications (Trade) Dose Ordered Sig/Shahla Route PRN Reason Start Time Stop Time Status Last Admin Dose Admin Acetaminophen (Tylenol) 650 mg Q4H PRN ORAL FEVER 08/13/18 19:45 09/12/18 19:44 Albuterol/ Ipratropium (Albuterol/ Ipratropium) 3 ml Q4H PRN HHN Shortness of Breath 08/13/18 19:45 08/18/18 19:44 Amiodarone HCl (Cordarone) 100 mg DAILY ORAL 08/14/18 09:00 09/13/18 08:59 08/15/18 08:29 Apixaban (Eliquis) 5 mg BID ORAL 08/14/18 18:00 09/13/18 17:59 08/15/18 08:29 Ceftriaxone Sodium 1 gm/ Dextrose 55 ml @ 110 mls/hr Q24H IVPB 08/14/18 11:00 08/21/18 10:59 08/15/18 10:41 Dextrose (Dextrose 50%) 50 ml STAT PRN IV Hypoglycemia 08/13/18 19:45 09/12/18 19:44 Doxycycline Monohydrate (Vibramycin) 100 mg EVERY 12 HOURS ORAL 08/14/18 10:00 08/21/18 09:59 08/15/18 08:30 Lorazepam (Ativan 2mg/ml 1ml) 2 mg Q2H PRN IV For Anxiety 08/13/18 19:45 08/20/18 19:44 08/15/18 10:41 Metoprolol Succinate (Toprol XL) 50 mg DAILY ORAL 08/14/18 09:00 09/13/18 08:59 08/15/18 08:29 Morphine Sulfate (Morphine Sulfate) 4 mg Q4H PRN IVP Severe Pain (Pain Scale 7-10) 08/13/18 19:45 08/20/18 19:44 08/15/18 08:43 Ondansetron HCl (Zofran) 4 mg Q6H PRN IVP Nausea & Vomiting 08/13/18 19:45 09/12/18 19:44 Polyethylene Glycol (Miralax) 17 gm DAILYPRN PRN ORAL Constipation 08/13/18 19:45 09/12/18 19:44 Promethazine HCl/ Codeine (Phenergan with Codeine) 5 ml Q4H PRN ORAL For Cough 08/14/18 11:30 09/13/18 11:29 Sodium Chloride 1,000 ml @ 50 mls/hr Q20H IV 08/13/18 19:45 09/12/18 19:44 08/15/18 12:08 Nir Brown MD Aug 15, 2018 12:16
[2018-08-15] MEDS: Morphine Sulfate 2mg/ml Inj(IV/IM USE ONLY) IVP PRN ×2 (15:42→20:52)
--- NOTE | 2018-08-15 15:51 | NUR ---
NURSE NOTES: RN provided cup for the patient in order to collect sputum sample, Patient was not be able to cough up any sputum till now. Patient stated that his flank is hurts while he tries to cough.
[2018-08-15 16:00] VITALS: BP 110/54
--- NOTE | 2018-08-15 16:07 | NUR ---
CASE MANAGEMENT:REVIEW 08/15/18 SI: SEPSIS. CAD 97.9 68 20 124/77 97% ON RA IS: IV MORPHINE Q4HRS PRN ELIQUIS PO BID IV ROCEPHIN Q24 VIBRAMYCIN PO Q12 AMIODARONE PO QD TOPROL XL PO QD IVF@50/HR : TELEMETRY STATUS
--- NOTE | 2018-08-15 18:13 | NUR ---
NURSE NOTES: Patient supposed to be on 1/ NS IV fluid, but he refused the IV since 1400. RN keep asking him to put him back on his IV but still he is refusing.
--- NOTE | 2018-08-15 18:36 | Internal Med Progress Note ---
Subjective Date of Service: Aug 15, 2018 Physician Name Ted Monk Attending Physician Ten Reno MD Current Medications Medications (Trade) Dose Ordered Sig/Shahla Route PRN Reason Start Time Stop Time Status Last Admin Dose Admin Acetaminophen (Tylenol) 650 mg Q4H PRN ORAL FEVER 08/13/18 19:45 09/12/18 19:44 Albuterol/ Ipratropium (Albuterol/ Ipratropium) 3 ml Q4H PRN HHN Shortness of Breath 08/13/18 19:45 08/18/18 19:44 Amiodarone HCl (Cordarone) 100 mg DAILY ORAL 08/14/18 09:00 09/13/18 08:59 08/15/18 08:29 Apixaban (Eliquis) 5 mg BID ORAL 08/14/18 18:00 09/13/18 17:59 08/15/18 17:11 Ceftriaxone Sodium 1 gm/ Dextrose 55 ml @ 110 mls/hr Q24H IVPB 08/14/18 11:00 08/21/18 10:59 08/15/18 10:41 Dextrose (Dextrose 50%) 50 ml STAT PRN IV Hypoglycemia 08/13/18 19:45 09/12/18 19:44 Doxycycline Monohydrate (Vibramycin) 100 mg EVERY 12 HOURS ORAL 08/14/18 10:00 08/21/18 09:59 08/15/18 08:30 Lorazepam (Ativan 2mg/ml 1ml) 2 mg Q2H PRN IV For Anxiety 08/13/18 19:45 08/20/18 19:44 08/15/18 10:41 Metoprolol Succinate (Toprol XL) 50 mg DAILY ORAL 08/14/18 09:00 09/13/18 08:59 08/15/18 08:29 Morphine Sulfate (Morphine Sulfate) 2 mg Q4H PRN IVP Severe Pain (Pain Scale 7-10) 08/15/18 15:45 08/20/18 19:44 08/15/18 15:42 Ondansetron HCl (Zofran) 4 mg Q6H PRN IVP Nausea & Vomiting 08/13/18 19:45 09/12/18 19:44 Polyethylene Glycol (Miralax) 17 gm DAILYPRN PRN ORAL Constipation 08/13/18 19:45 09/12/18 19:44 Promethazine HCl/ Codeine (Phenergan with Codeine) 5 ml Q4H PRN ORAL For Cough 08/14/18 11:30 09/13/18 11:29 Sodium Chloride 1,000 ml @ 50 mls/hr Q20H IV 08/13/18 19:45 09/12/18 19:44 08/15/18 12:08 Allergies: Coded Allergies: No Known Allergies (Unverified , 08/13/18) ROS Limited/Unobtainable: No Constitutional: Reports: no symptoms HEENT: Reports: no symptoms Cardiovascular: Reports: no symptoms Respiratory: Reports: no symptoms Gastrointestinal/Abdominal: Reports: abdominal pain - right flank pain Genitourinary: Reports: no symptoms Neurologic/Psychiatric: Reports: no symptoms Subjective 63 YO M admitted with near syncope. Cover for Int Med-DR Reno Objective Last Vital Signs Date Time Temp Pulse Resp B/P (MAP) Pulse Ox O2 Delivery O2 Flow Rate FiO2 08/15/18 16:00 97.7 66 20 110/54 (72) 97 08/15/18 09:00 Room Air 08/13/18 21:42 2.0 Laboratory Tests Test 08/15/18 06:37 Troponin I 0.000 ng/mL (0.000-0.056) Pro-B-Type Natriuretic Peptide 278 pg/mL (0-125) H Microbiology Date/Time Source Procedure Growth Status 08/13/18 18:06 Blood Blood Culture - Preliminary NO GROWTH AFTER 24 HOURS Resulted 08/13/18 18:00 Blood Blood Culture - Preliminary NO GROWTH AFTER 24 HOURS Resulted 08/13/18 16:25 Urine,Clean Catch Urine Culture - Preliminary NO GROWTH AFTER 24 HOURS Resulted Intake and Output 08/14/18 08/15/18 19:00 07:00 Intake Total 743 ml 775 ml Output Total 1350 ml 650 ml Balance -607 ml 125 ml Intake Oral 730 ml IV Total 13 ml 775 ml Output Urine Total 1350 ml 650 ml # Voids 3 Objective PHYSICAL EXAMINATION: GENERAL: The patient is a well-developed and well-nourished white male, in no apparent distress. HEENT: Eyes, pupils are equal and responsive to light and accommodation. Extraocular movements are intact. NECK: Supple without lymphadenopathy. CHEST: Lungs are clear to auscultation bilaterally without wheezes or rales. CARDIOVASCULAR: Regular rhythm and rate. S1 and S2 are normal without murmurs, rubs, or gallops. ABDOMEN: Soft, nontender, and nondistended. Positive bowel sounds. No evidence of hepatosplenomegaly. Currently, no rebound or guarding noted. NEUROLOGIC: Cranial nerves II through XII are grossly intact without focal deficits. Motor strength is 5/5 bilaterally. Deep tendon reflexes are 2+ plantar. EXTREMITIES: Without clubbing, cyanosis, or edema. RECTAL/GENITAL: Not performed. Assessment/Plan Assessment/Plan ASSESSMENT: This is a 63-year-old white male. 1. Near syncopal episode. 2. Right flank pain. 3. Hypertension. 4. Coronary artery disease. 5. Pacemaker in situ. TREATMENT: 1. Near syncopal episode. This may be secondary to dehydration. The patient's BUN and creatinine are elevated. The patient is currently receiving intravenous fluids. Differential also includes acute coronary syndrome versus acute cerebrovascular accident. An MRI of the brain is pending. A Cardiology consultation has been obtained with Dr. Raul Rice. 2. Right flank pain. An initial urinalysis was within normal limits. A CT scan of the abdomen and pelvis failed to demonstrate acute renal calculus. The patient may have passed a stone previously. A urine culture is pending. 3. Hypertension. Continue metoprolol as above. 4. Coronary artery disease. Continue Xarelto as above. Continue amiodarone as above. Ted Monk MD Aug 15, 2018 18:36
--- NOTE | 2018-08-15 19:18 | NUR ---
HAND-OFF: Report given to JAMIL Evans.
[2018-08-15 20:00] VITALS: BP 134/69
--- NOTE | 2018-08-15 20:00 | NUR ---
NURSE NOTES: Report received from Bety NEGRON. Patient is observed in bed, asleep but arousable by voice. Denies pain at this time. Patient refused to be connected to IV, MD aware. Bed is in lowest position with side rails up x2 and brakes are engaged. Encouraged pt to use call light when in need of assistance, pt verbalized understanding. Will continue to monitor.
--- NOTE | 2018-08-15 20:43 | Cardiology Progress Note ---
Assessment/Plan Assessment/Plan 1. Syncope, questionable. 2. Right flank pain. 3. Urinary tract infection. 4. History of coronary artery disease status post 2 stents. 5. History of permanent pacemaker implantation. 6. History of atrial fibrillation previously. 7. History of prior syncope. pacer interrogated pacer andreina ewing has had atrial fib/ atrial tachy on several occsioan longes 1 hour and 54 min in 2018 havign diarrhea bp seem ok iv for nwo on anticoag Subjective Cardiovascular: Denies: chest pain, lightheadedness Respiratory: Denies: shortness of breath Gastrointestinal/Abdominal: Reports: diarrhea; Denies: abdominal pain Genitourinary: Denies: burning Objective Last 24 Hour Vital Signs Date Time Temp Pulse Resp B/P (MAP) Pulse Ox O2 Delivery O2 Flow Rate FiO2 08/15/18 20:39 Room Air 08/15/18 20:27 77 16 Room Air 21 08/15/18 16:00 97.7 66 20 110/54 (72) 97 08/15/18 16:00 70 08/15/18 12:00 97.9 68 20 124/77 (93) 97 08/15/18 12:00 77 08/15/18 09:00 Room Air 08/15/18 08:29 82 127/69 08/15/18 08:00 80 08/15/18 08:00 97.9 82 20 127/69 (88) 98 08/15/18 07:25 81 16 Room Air 08/15/18 04:00 69 08/15/18 04:00 98.0 69 18 124/60 (81) 98 08/15/18 00:00 97.7 70 18 107/60 (76) 93 08/15/18 00:00 68 08/14/18 21:00 Room Air General Appearance: alert, mild distress Neck: supple Cardiovascular: normal rate, regular rhythm Respiratory/Chest: lungs clear Abdomen: normal bowel sounds, non tender, soft Extremities: no swelling Intake and Output 08/14/18 08/15/18 19:00 07:00 Intake Total 743 ml 775 ml Output Total 1350 ml 650 ml Balance -607 ml 125 ml Intake Oral 730 ml IV Total 13 ml 775 ml Output Urine Total 1350 ml 650 ml # Voids 3 Laboratory Tests Test 08/15/18 06:37 Troponin I 0.000 ng/mL (0.000-0.056) Pro-B-Type Natriuretic Peptide 278 pg/mL (0-125) H Microbiology Date/Time Source Procedure Growth Status 08/13/18 18:06 Blood Blood Culture - Preliminary NO GROWTH AFTER 24 HOURS Resulted 08/13/18 18:00 Blood Blood Culture - Preliminary NO GROWTH AFTER 24 HOURS Resulted 08/13/18 16:25 Urine,Clean Catch Urine Culture - Preliminary NO GROWTH AFTER 24 HOURS Resulted Raul Rice MD Aug 15, 2018 20:43
[2018-08-15] MEDS ORDERED: Zolpidem 5mg tab ORAL PRN (21:00)
[2018-08-16] VITALS: BP 128/67
[2018-08-16] MEDS: Morphine Sulfate 2mg/ml Inj(IV/IM USE ONLY) IVP PRN ×4 (02:04→14:45)
[2018-08-16 04:00] VITALS: BP 139/80
[2018-08-16 07:32] LABS: BASOPHILS % (AUTO) 0.7 % (0.0-2.0); HEMATOCRIT 40.6 % (42.0-52.0); HEMOGLOBIN 13.1 G/DL (14.2-18.0); LYMPHOCYTES % (AUTO) 19.2 % (20.0-45.0); MEAN CORPUSCULAR VOLUME 81 FL (80-99); MONOCYTES % (AUTO) 8.1 % (1.0-10.0); PLATELET COUNT 185 K/UL (150-450); RED BLOOD COUNT 5.02 M/UL (4.70-6.10); RED CELL DISTRIBUTION WIDTH 15.7 % (11.6-14.8); WHITE BLOOD COUNT 4.8 K/UL (4.8-10.8)
--- NOTE | 2018-08-16 07:36 | NUR ---
NURSE NOTES: pt awake alert, no c/o pain. call light within reach. no distress. bed in lowest position, locked. will monitor.
--- NOTE | 2018-08-16 07:37 | NUR ---
HAND-OFF: Report given to Pedro Luis NEGRON. Patient is in stable condition. Endorsed plan of care.
[2018-08-16 07:39] LABS: ALANINE AMINOTRANSFERASE 23 U/L (12-78); ALBUMIN/GLOBULIN RATIO 0.7 (1.0-2.7); ALKALINE PHOSPHATASE 86 U/L (46-116); ANION GAP 8 mmol/L (5-15); ASPARTATE AMINO TRANSFERASE 33 U/L (15-37); BILIRUBIN,TOTAL 0.5 MG/DL (0.2-1.0); BLOOD UREA NITROGEN 10 mg/dL (7-18); CALCIUM 9.7 MG/DL (8.5-10.1); CARBON DIOXIDE 28 MMOL/L (21-32); CHLORIDE 108 MMOL/L (98-107); CREATININE 1.2 MG/DL (0.55-1.30); PHOSPHORUS 2.9 MG/DL (2.5-4.9); POTASSIUM 4.1 MMOL/L (3.5-5.1); SODIUM 144 MMOL/L (136-145)
[2018-08-16 07:55] LABS: INR 0.9 (0.9-1.1)
[2018-08-16 08:00] VITALS: BP 130/80
[2018-08-16 08:07] LABS: LACTATE DEHYDROGENASE 211 U/L (81-234)
[2018-08-16] MEDS: Amiodarone 200mg tab ORAL SCH (08:26)
[2018-08-16] MEDS: Eliquis 2.5mg tablet ORAL SCH (08:27)
[2018-08-16] MEDS: Metoprolol Succinate XL 50mg tab ORAL SCH (08:27)
[2018-08-16 08:55] LABS: % IRON SATURATION 9 % (15-50); IRON 25 ug/dL (50-175); TOTAL IRON BINDING CAPACITY 287 ug/dL (250-450)
--- NOTE | 2018-08-16 10:10 | Infectious Diseases Prog Note ---
Assessment/Plan Assessment/Plan 63 yo male with PMHx of CAD s/p pacemaker and HTN who was brought to the ED after having severe right sided flank pain at a store. Sepsis UTI? PNA? CT abd/pel 08/13/18 - Acute abdominal or pelvic abnormality. No evidence of obstructive uropathy or urinary stone disease. Basilar pulmonary parenchymal disease, likely combination of consolidation, atelectasis, and scarring, right greater than left. Incidental findings as noted, including degenerative spondylosis, pacemaker, small fat-containing umbilical hernia, small fat- containing left inguinal hernia Afebrile Leukocytosis initially 21 - Now resolved Spepsis vs pain reaction B/U Cx ngtd Side pain - Pulled muscle vs pleuritis from PNA CAD- s/p pacemaker HTN PLAN - Continue Doxycycline 100mg BID #3/6 for PNA ( End date 08/19/18) - 08/16/18 SP Ceftriaxone #3 - 08/14/18 S/P Ceftriaxone x 1, Azithromycin x1 and Cefepime x 1 - Monitor CBC and Temps We will continue to follow the patient during this hospitalization. Subjective Allergies: Coded Allergies: No Known Allergies (Unverified , 08/13/18) Subjective Aferbile Side pain No Leukocytosis Objective Vital Signs Last 24 Hour Vital Signs Date Time Temp Pulse Resp B/P (MAP) Pulse Ox O2 Delivery O2 Flow Rate FiO2 08/16/18 08:27 76 130/80 08/16/18 08:00 97.0 76 20 130/80 (97) 99 08/16/18 07:41 79 16 Room Air 21 08/16/18 07:12 Room Air 08/16/18 04:13 65 08/16/18 04:00 97.0 69 20 139/80 (99) 99 08/16/18 00:00 98.0 70 20 128/67 (87) 97 08/15/18 23:32 64 08/15/18 20:39 Room Air 08/15/18 20:27 77 16 Room Air 21 08/15/18 20:00 74 08/15/18 20:00 98.0 65 20 134/69 (90) 97 08/15/18 16:00 97.7 66 20 110/54 (72) 97 08/15/18 16:00 70 08/15/18 12:00 97.9 68 20 124/77 (93) 97 08/15/18 12:00 77 Height (Feet): 5 Height (Inches): 9.00 Weight (Pounds): 166 Objective Gen: NAD, well appearing, alert HEENT: NCAT, MMM, EOMI LUNGS: CTAB, No W CARDS: RRR, S1, S2, No M/R/G, ABD: Soft, NT, ND,+ BS Microbiology Date/Time Source Procedure Growth Status 08/13/18 18:06 Blood Blood Culture - Preliminary NO GROWTH AFTER 48 HOURS Resulted 08/13/18 18:00 Blood Blood Culture - Preliminary NO GROWTH AFTER 48 HOURS Resulted 08/13/18 19:30 Nasal Nares MRSA Culture - Final NO METHICILLIN RESISTANT STAPH AUREUS... Complete 08/13/18 16:25 Urine,Clean Catch Urine Culture - Final NO GROWTH AFTER 48 HOURS Complete 08/13/18 19:30 Rectum VRE Culture - Final NO VANCOMYCIN RESISTANT ENTEROCOCCUS ... Complete Laboratory Tests Test 08/16/18 06:38 White Blood Count 4.8 K/UL (4.8-10.8) Red Blood Count 5.02 M/UL (4.70-6.10) Hemoglobin 13.1 G/DL (14.2-18.0) L Hematocrit 40.6 % (42.0-52.0) L Mean Corpuscular Volume 81 FL (80-99) Mean Corpuscular Hemoglobin 26.1 PG (27.0-31.0) L Mean Corpuscular Hemoglobin Concent 32.3 G/DL (32.0-36.0) Red Cell Distribution Width 15.7 % (11.6-14.8) H Platelet Count 185 K/UL (150-450) Mean Platelet Volume 9.3 FL (6.5-10.1) Neutrophils (%) (Auto) 71.0 % (45.0-75.0) Lymphocytes (%) (Auto) 19.2 % (20.0-45.0) L Monocytes (%) (Auto) 8.1 % (1.0-10.0) Eosinophils (%) (Auto) 1.0 % (0.0-3.0) Basophils (%) (Auto) 0.7 % (0.0-2.0) Erythrocyte Sedimentation Rate 62 MM/HR (0-20) H Reticulocyte Count Pending Prothrombin Time 9.7 SEC (9.30-11.50) Prothromb Time International Ratio 0.9 (0.9-1.1) Activated Partial Thromboplast Time 29 SEC (23-33) Sodium Level 144 MMOL/L (136-145) Potassium Level 4.1 MMOL/L (3.5-5.1) Chloride Level 108 MMOL/L (98-107) H Carbon Dioxide Level 28 MMOL/L (21-32) Anion Gap 8 mmol/L (5-15) Blood Urea Nitrogen 10 mg/dL (7-18) Creatinine 1.2 MG/DL (0.55-1.30) Estimat Glomerular Filtration Rate > 60 mL/min (>60) Glucose Level 95 MG/DL (74-106) Calcium Level 9.7 MG/DL (8.5-10.1) Phosphorus Level 2.9 MG/DL (2.5-4.9) Magnesium Level 1.9 MG/DL (1.8-2.4) Iron Level 25 ug/dL (50-175) L Total Iron Binding Capacity 287 ug/dL (250-450) Percent Iron Saturation 9 % (15-50) L Unsaturated Iron Binding 262 ug/dL (112-346) Total Bilirubin 0.5 MG/DL (0.2-1.0) Aspartate Amino Transf (AST/SGOT) 33 U/L (15-37) Alanine Aminotransferase (ALT/SGPT) 23 U/L (12-78) Alkaline Phosphatase 86 U/L (46-116) Lactate Dehydrogenase 211 U/L (81-234) C-Reactive Protein, Quantitative 7.8 mg/dL (0.00-0.90) H Total Protein 7.4 G/DL (6.4-8.2) Albumin 3.0 G/DL (3.4-5.0) L Globulin 4.4 g/dL Albumin/Globulin Ratio 0.7 (1.0-2.7) L Carcinoembryonic Antigen Pending Vitamin B12 Level 297 PG/ML (193-986) Folate 6.0 NG/ML (8.6-58.9) L Current Medications Medications (Trade) Dose Ordered Sig/Shahla Route PRN Reason Start Time Stop Time Status Last Admin Dose Admin Acetaminophen (Tylenol) 650 mg Q4H PRN ORAL FEVER 08/13/18 19:45 09/12/18 19:44 Albuterol/ Ipratropium (Albuterol/ Ipratropium) 3 ml Q4H PRN HHN Shortness of Breath 08/13/18 19:45 08/18/18 19:44 Amiodarone HCl (Cordarone) 100 mg DAILY ORAL 08/14/18 09:00 09/13/18 08:59 08/16/18 08:26 Apixaban (Eliquis) 5 mg BID ORAL 08/14/18 18:00 09/13/18 17:59 08/16/18 08:27 Ceftriaxone Sodium 1 gm/ Dextrose 55 ml @ 110 mls/hr Q24H IVPB 08/14/18 11:00 08/21/18 10:59 08/15/18 10:41 Dextrose (Dextrose 50%) 50 ml STAT PRN IV Hypoglycemia 08/13/18 19:45 09/12/18 19:44 Doxycycline Monohydrate (Vibramycin) 100 mg EVERY 12 HOURS ORAL 08/14/18 10:00 08/21/18 09:59 08/16/18 08:26 Lorazepam (Ativan 2mg/ml 1ml) 2 mg Q2H PRN IV For Anxiety 08/13/18 19:45 08/20/18 19:44 08/15/18 10:41 Metoprolol Succinate (Toprol XL) 50 mg DAILY ORAL 08/14/18 09:00 09/13/18 08:59 08/16/18 08:27 Morphine Sulfate (Morphine Sulfate) 2 mg Q4H PRN IVP Severe Pain (Pain Scale 7-10) 08/15/18 15:45 08/20/18 19:44 08/16/18 07:01 Ondansetron HCl (Zofran) 4 mg Q6H PRN IVP Nausea & Vomiting 08/13/18 19:45 09/12/18 19:44 Polyethylene Glycol (Miralax) 17 gm DAILYPRN PRN ORAL Constipation 08/13/18 19:45 09/12/18 19:44 Promethazine HCl/ Codeine (Phenergan with Codeine) 5 ml Q4H PRN ORAL For Cough 08/14/18 11:30 09/13/18 11:29 Sodium Chloride 1,000 ml @ 50 mls/hr Q20H IV 08/13/18 19:45 09/12/18 19:44 08/16/18 07:45 Zolpidem Tartrate (Ambien) 5 mg HSPRN PRN ORAL Insomnia 08/15/18 21:00 08/22/18 20:59 08/15/18 22:02 Shaan Rincon MD Aug 16, 2018 10:10
[2018-08-16] MEDS: cefTRIAXone 1 GM in D5W 55 ML IVPB SCH (10:24)
[2018-08-16] MEDS ORDERED: Loperamide 2mg cap ORAL PRN (11:30)
[2018-08-16 12:00] VITALS: BP 158/83
[2018-08-16] MEDS ORDERED: ELIQUIS2.5 MG ORAL (12:18)
[2018-08-16] MEDS ORDERED: IMODIUM2 MG ORAL (12:18)
[2018-08-16] MEDS ORDERED: DOXYCYCLINE HY100 M2 ORAL (12:18)
--- NOTE | 2018-08-16 12:19 | Pulmonology Progress Note ---
Assessment/Plan Problems: (1) Sepsis (2) Stented coronary artery (3) CAD (coronary artery disease) (4) Chronic anticoagulation (5) Pacemaker (6) On amiodarone therapy Assessment/Plan check sputum check urine cultures on Doxycycline cardiology note appreciated check pacemaker Apixiban was added continue cardiac meds dvt prophylaxis monitor BP lotrimine for diarrhea Subjective ROS Limited/Unobtainable: No Interval Events: flank pain much better Constitutional: Reports: no symptoms HEENT: Repors: no symptoms Respiratory: Reports: no symptoms Cardiovascular: Reports: no symptoms Allergies: Coded Allergies: No Known Allergies (Unverified , 08/13/18) Objective Last 24 Hour Vital Signs Date Time Temp Pulse Resp B/P (MAP) Pulse Ox O2 Delivery O2 Flow Rate FiO2 08/16/18 11: 97.0 08/16/18 08:27 76 130/80 08/16/18 08:00 97.0 76 20 130/80 (97) 99 08/16/18 07:55 79 08/16/18 07:41 79 16 Room Air 21 08/16/18 07:12 Room Air 08/16/18 04:13 65 08/16/18 04:00 97.0 69 20 139/80 (99) 99 08/16/18 00:00 98.0 70 20 128/67 (87) 97 08/15/18 23:32 64 08/15/18 20:39 Room Air 08/15/18 20:27 77 16 Room Air 21 08/15/18 20:00 74 08/15/18 20:00 98.0 65 20 134/69 (90) 97 08/15/18 16:00 97.7 66 20 110/54 (72) 97 08/15/18 16:00 70 Intake and Output 08/15/18 08/16/18 19:00 07:00 Intake Total 240 ml Output Total 650 ml Balance -410 ml Intake Oral 240 ml Output Urine Total 650 ml # Voids 8 3 General Appearance: WD/WN HEENT: normocephalic, atraumatic Respiratory/Chest: chest wall non-tender, lungs clear, chest wall tender Cardiovascular: normal peripheral pulses, normal rate Abdomen: normal bowel sounds, soft, non tender Genitourinary: normal external genitalia Extremities: no cyanosis Neurologic/Psychiatric: title checker II-XII grossly normal Microbiology Date/Time Source Procedure Growth Status 4/8/19 18:06 Blood Blood Culture - Preliminary NO GROWTH AFTER 48 HOURS Resulted 08/13/18 18:00 Blood Blood Culture - Preliminary NO GROWTH AFTER 48 HOURS Resulted 08/13/18 19:30 Nasal Nares MRSA Culture - Final NO METHICILLIN RESISTANT STAPH AUREUS... Complete 08/13/18 16:25 Urine,Clean Catch Urine Culture - Final NO GROWTH AFTER 48 HOURS Complete 08/13/18 19:30 Rectum VRE Culture - Final NO VANCOMYCIN RESISTANT ENTEROCOCCUS ... Complete Laboratory Tests 08/16/18 06:38: White Blood Count 4.8, Red Blood Count 5.02, Hemoglobin 13.1L, Hematocrit 40.6L , Mean Corpuscular Volume 81, Mean Corpuscular Hemoglobin 26.1L, Mean Corpuscular Hemoglobin Concent 32.3, Red Cell Distribution Width 15.7H, Platelet Count 185, Mean Platelet Volume 9.3, Neutrophils (%) (Auto) 71.0, Lymphocytes (%) (Auto) 19.2L, Monocytes (%) (Auto) 8.1, Eosinophils (%) (Auto) 1.0, Basophils (%) (Auto) 0.7, Neutrophils % (Manual) [Pending], Lymphocytes % ( Manual) [Pending], Platelet Estimate [Pending], Platelet Morphology [Pending], Erythrocyte Sedimentation Rate 62H, Reticulocyte Count 0.9, Prothrombin Time 9.7 , Prothromb Time International Ratio 0.9, Activated Partial Thromboplast Time 29 , Sodium Level 144, Potassium Level 4.1, Chloride Level 108H, Carbon Dioxide Level 28, Anion Gap 8, Blood Urea Nitrogen 10, Creatinine 1.2, Estimat Glomerular Filtration Rate > 60, Glucose Level 95, Calcium Level 9.7, Phosphorus Level 2.9, Magnesium Level 1.9, Iron Level 25L, Total Iron Binding Capacity 287, Percent Iron Saturation 9L, Unsaturated Iron Binding 262, Total Bilirubin 0.5, Aspartate Amino Transf (AST/SGOT) 33, Alanine Aminotransferase ( ALT/SGPT) 23, Alkaline Phosphatase 86, Lactate Dehydrogenase 211, C-Reactive Protein, Quantitative 7.8H, Total Protein 7.4, Albumin 3.0L, Globulin 4.4, Albumin/Globulin Ratio 0.7L, Carcinoembryonic Antigen [Pending], Vitamin B12 Level 297, Folate 6.0L Current Medications Medications (Trade) Dose Ordered Sig/Shahla Route PRN Reason Start Time Stop Time Status Last Admin Dose Admin Acetaminophen (Tylenol) 650 mg Q4H PRN ORAL FEVER 08/13/18 19:45 09/12/18 19:44 Albuterol/ Ipratropium (Albuterol/ Ipratropium) 3 ml Q4H PRN HHN Shortness of Breath 08/13/18 19:45 08/18/18 19:44 Amiodarone HCl (Cordarone) 100 mg DAILY ORAL 08/14/18 09:00 09/13/18 08:59 08/16/18 08:26 Apixaban (Eliquis) 5 mg BID ORAL 08/14/18 18:00 09/13/18 17:59 08/16/18 08:27 Ceftriaxone Sodium 1 gm/ Dextrose 55 ml @ 110 mls/hr Q24H IVPB 08/14/18 11:00 08/21/18 10:59 08/16/18 10:24 Dextrose (Dextrose 50%) 50 ml STAT PRN IV Hypoglycemia 08/13/18 19:45 09/12/18 19:44 Doxycycline Monohydrate (Vibramycin) 100 mg EVERY 12 HOURS ORAL 08/14/18 10:00 08/21/18 09:59 08/16/18 08:26 Loperamide HCl (Imodium) 2 mg Q4H PRN ORAL Diarrhea 08/16/18 11:30 09/15/18 11:29 08/16/18 11:33 Lorazepam (Ativan 2mg/ml 1ml) 2 mg Q2H PRN IV For Anxiety 08/13/18 19:45 08/20/18 19:44 08/15/18 10:41 Metoprolol Succinate (Toprol XL) 50 mg DAILY ORAL 08/14/18 09:00 09/13/18 08:59 08/16/18 08:27 Morphine Sulfate (Morphine Sulfate) 2 mg Q4H PRN IVP Severe Pain (Pain Scale 7-10) 08/15/18 15:45 08/20/18 19:44 08/16/18 10:49 Ondansetron HCl (Zofran) 4 mg Q6H PRN IVP Nausea & Vomiting 08/13/18 19:45 09/12/18 19:44 Polyethylene Glycol (Miralax) 17 gm DAILYPRN PRN ORAL Constipation 08/13/18 19:45 09/12/18 19:44 Promethazine HCl/ Codeine (Phenergan with Codeine) 5 ml Q4H PRN ORAL For Cough 08/14/18 11:30 09/13/18 11:29 Sodium Chloride 1,000 ml @ 50 mls/hr Q20H IV 08/13/18 19:45 09/12/18 19:44 08/16/18 07:45 Zolpidem Tartrate (Ambien) 5 mg HSPRN PRN ORAL Insomnia 08/15/18 21:00 08/22/18 20:59 08/15/18 22:02 Nir Brown MD Aug 16, 2018 12:19
--- NOTE | 2018-08-16 15:53 | NUR ---
NURSE NOTES: pt doesnt want to receive eliquis as he is taking xarelto at home, dr Brown made aware and per md it's ok. pt aware. iv removed no bleeding , arm band removed, awaiting taxi. per Chris Schofield, pt can have 10miles under voucher but beyond that pt can pay. voucher given to pt
[2018-08-16] MEDS ORDERED: 1/2 NS 1000ml IV ONE (15:56)
[2018-08-16] MEDS ORDERED: NS 500ML ONE (15:56)
[2018-08-16] MEDS ORDERED: Tubing IV Secondary IV ONE (15:56)
--- NOTE | 2018-08-16 16:00 | NUR ---
NURSE NOTES: pt left in stable condition via taxi w all belongings
--- NOTE | 2018-08-16 17:45 | Cardiology Report ---
APPROVED REPORT EXAM: Two-dimensional and M-mode echocardiogram with Doppler and color Doppler. INDICATION Syncope M-Mode DIMENSIONS IVSd0.7 (0.7-1.1cm)Left Atrium (MM)3.1 (1.6-4.0cm) LVDd4.9 (3.5-5.6cm)Aortic Root4.0 (2.0-3.7cm) PWd1.1 (0.7-1.1cm)Aortic Cusp Exc.1.9 (1.5-2.0cm) IVSs1.6 cm LVDs2.2 (2.5-4.0cm) PWs1.2 cm Normal left ventricular chamber size, systolic function and wall motion to extend visualized . Left ventricular ejection fraction estimated to be 55-60%. No evidence of left ventricular hypertrophy . No evidence of pericardial fat or effusion. All other cardiac chamber sizes are within normal limits. Focal aortic valve sclerosis with normal cusp excursion. Mildly Thickened mitral valve leaflets with normal excursion. Pulmonic valve not well visualized. Normal tricuspid valve structure. IVC at normal size with physiologic collapse . A color flow and spectral Doppler study was performed and revealed: No aortic insufficiency . Trace mitral regurgitation. Mitral diastolic velocities suggest reduced left ventricular relaxation c/w mild LV diastolic dysfunction (Grade I ). Trace tricuspid regurgitation. Tricuspid systolic velocities suggests peak right ventricular systolic pressure of 12mmHg.
--- NOTE | 2018-08-16 18:03 | Cardiology Report ---
APPROVED REPORT EKG Measurement Heart [id number] Normal sinus rhythm Septal infarct, age undetermined Abnormal ECG
--- NOTE | 2018-08-20 10:38 | Discharge Summary ---
Discharge Summary Discharge Summary _ DATE OF ADMISSION: 08/13/2018 DATE OF DISCHARGE: 08/16/2018 ADMITTING MD: Dr. Ten Reno DISCHARGED BY: Dr. Nir Brown CONSULTANTS: Dr. Nir Rincon [facility] HOSPITAL COURSE: Patient is a 63-year-old white male, who presented to ED with chief complaint of near syncope. Patient was agitated. He was on his way to the [employer] store on 08/13/2018 and stated it was hot. The patient is slumped to the ground. The patient thinks it was because he was dehydrated. He then presented to the emergency room. Past medical history significant for hypertension and coronary artery disease, status post 2 stents and, status post pacemaker implantation. Evaluation at ED, vital signs were stable. WBC was elevated to 21, hemoglobin 12, hematocrit 37. Electrolytes were normal. Creatinine was elevated to 1.7, BUN 19. Lactic acid 1.3. Urinalysis showed 1+ leukocyte esterase, 2-4 RBC, 5- 10 WBC and negative nitrite with moderate bacteria. He had evidence of urinary tract infection. He complained of right flank pain. CT scan of the abdomen and pelvis per ED physician showed pulmonary right-sided scarring and possible infiltrate. Chest x-ray with no acute process. He was pancultured and was started on IV antibiotics. He was admitted for evaluation of near syncopal episode, and flank pain. He was given IV fluids. He was continued on metoprolol, amiodarone and Xarelto. He was given ceftriaxone for UTI and doxycycline for pneumonia. Cardiac evaluation was done. EKG showed normal sinus rhythm with no ST or T wave abnormalities of any significant degree. Telemetry showed no evidence of bradycardia. Troponin was negative. Pacemaker interrogation was done. Pacemaker function was normal. He had diarrhea and was given loperamide. Blood culture did not isolate any growth. Urine culture did not isolate any growth. Ceftriaxone was discontinued. He was advised to continue doxycycline 100 mg twice daily until 08/19/2018. He was discharged home. FINAL DIAGNOSES: Sepsis possibly from CAP and UTI Syncope Right flank pain Urinary tract infection Coronary artery disease status post 2 stents Permanent pacemaker implantation Atrial fibrillation DISPOSITION: Patient was discharged home. DISCHARGE MEDICATIONS: Refer to Discharge Medication List. DISCHARGE INSTRUCTIONS: Follow-up in a week. I have been assigned to complete a discharge summary on this account, I was not involved with the patient's management. Leatha Palacios NP Aug 20, 2018 10:38
== END 2018-08-16 15:57 | disposition home or self-care (01) | DRG 871 ==
LOC: EDBD 16:05 → EMR 18:17 → 2E 18:37 → EDBEDREQ 20:30
DX: A41.9 Sepsis, unspecified organism (principal); J18.9 Pneumonia, unspecified organism; N39.0 Urinary tract infection, site not specified; I10 Essential (primary) hypertension; I25.10 Atherosclerotic heart disease of native coronary artery without angina pectoris; Z95.5 Presence of coronary angioplasty implant and graft; Z95.0 Presence of cardiac pacemaker; Z79.01 Long term (current) use of anticoagulants; E86.0 Dehydration; I48.91 Unspecified atrial fibrillation; E78.5 Hyperlipidemia, unspecified
CPT/HCPCS: 36415; 71045; 74176; 80053; 80069; 81001; 81003; 82378; 82550; 82570; 82607; 82746; 83540; 83550; 83605; 83615; 83690; 83735; 83880; 84100; 84133; 84300; 84484; 84550; 85007; 85025; 85044; 85060; 85610; 85651; 85730; 86140; 87040; 87081; 87086; 89050; 92610; 93005; 93306; 93970; 94664; 96365; 96367; 96375; 96376; 99285; J2405